=== PATIENT | female | born 1960 | race Caucasian/White ===

== ENCOUNTER 2018-11-28 11:34 | Outpatient (REF) | payer BC, SELFPAY ==
[2018-11-28 21:51] LABS: Abs Immature Grans 0.02 k/cumm (0.0-0.09); Absolute Basophil Count 0.06 k/cumm (0.0-0.2); Absolute Eosinophil Count 0.16 k/cumm (0.0-0.7); Absolute Lymphocyte Count 2.42 k/cumm (1.2-3.4); Absolute Monocyte Count 1.17 k/cumm (0.11-0.7); Absolute Neutrophil Count 5.95 k/cumm (1.2-6.7); Basophils % 0.6; Eosinophils % 1.6; HCT 42.2 % (36.0-46.0); HGB 14.1 g/dL (12.0-15.5); Immature Grans % 0.2; Lymphocytes % 24.7; Mean Corp. HGB Concentration 33.4 g/dL (32.0-36.0); Mean Corpuscular Hemoglobin 31.8 pg (27.0-33.0); Mean Corpuscular Volume 95.3 fL (80-95); Neutrophils % 60.9; RBC 4.43 m/cumm (4.00-5.20); RBC Distribution Width 13.7 % (11.7-14.6); White Blood Cell Count 9.78 k/cumm (4.4-10.8)
[2018-11-28 22:01] LABS: ALT 26 U/L (12-78); AST 18 U/L (15-37); Albumin 3.3 g/dL (3.4-5.0); Alkaline Phosphatase 125 U/L (46-116); Anion Gap 13.5 mmol/L (3-11); BUN 14 mg/dL (7-18); Bilirubin, Total 0.5 mg/dL (0.2-1.0); CO2 26.5 mmol/L (21.0-32.0); CREATININE 0.74 mg/dL (0.55-1.02); Calcium 9.1 mg/dL (8.5-10.1); Chloride 103 mmol/L (98-107); Glucose 95 mg/dL (70-100); Lipase 101 U/L (73-393); Potassium 3.2 mmol/L (3.5-5.1); Sodium 143 mmol/L (136-145); Total Protein 6.3 g/dL (6.4-8.2)
[2018-11-28 22:58] LABS: Platelet Count 129 x1000/uL (130-400)
[2018-11-28 22:59] LABS: Diff Comment PLT Morph Reviewed; RBC Morphology Normal
== END 2018-11-28 11:54 ==
LOC: NCHCN 11:34
PROVIDERS: PCP Family Medicine; Visit Provider Family Medicine
DX: R10.32 Left lower quadrant pain (principal); R19.4 Change in bowel habit
CPT/HCPCS: 80053; 83690; 85025

== ENCOUNTER 2019-01-21 13:32 | Emergency (ER) | payer BC, SELFPAY ==
[2019-01-21] VITALS (28 sets, daily range): BP systolic 106–143; BP diastolic 46–70; PULSE 74–95; RESP 10–26; TEMP 36.7; O2SAT 91–99
--- NOTE | 2019-01-21 14:00 | ED.GENADUL_ITS ---
Discharge Plan Disposition Patient Disposition: HOME Condition: Improving Discharge Details Chief Complaint: GenMedical Clinical Impression: Abdominal pain Primary Care Provider: LUIZ ZAVALA ED Provider: Filipe Joaquin Home Meds and New Rx's Prescriptions: Continued losartan 50 mg Tablet 50 mg PO DAILY RF: 0 atorvastatin 80 mg Tablet 80 mg PO DAILY RF: 0 ondansetron HCl 8 mg Tablet 8 mg PO TID PRNRF: 0 simethicone [Gas-X Extra Strength] 125 mg Capsule 1 tab PO PRN PRNRF: 0 prochlorperazine maleate 10 mg Tablet 10 mg PO Q6H PRN PRNRF: 0 aspirin [Aspir-81] 81 mg Tablet,Delayed Release (Dr/Ec) 1 tab PO DAILY RF: 0 pantoprazole 40 mg Tablet,Delayed Release (Dr/Ec) 40 mg PO DAILY RF: 0 docusate sodium [Colace] 100 mg Capsule 1 tab PO DAILY RF: 0 metoprolol tartrate 25 mg Tablet 25 mg PO BID RF: 0 Multi For Her 18 mg iron-600 mcg-40 mcg Capsule 1 tab PO DAILY RF: 0 oxycodone [OxyContin] 10 mg Tablet,Oral Only,Ext.Rel.12 Hr 10 mg PO Q12H RF: 0 Discharge Instructions Instructions: Abdominal Pain (ED) Additional Instructions: Your potassium today was 3.4. Your magnesium was low at 1.0 and you were given supplemental magnesium. Continue all of your regular medications as previously prescribed. Follow-up with Dr. Goldman for recheck and ongoing treatment of your pancreatic cancer. Return to the emergency department for recurrent or worsening abdominal pain, development of a fever or any other acute concern Medical Decision Making 58-year-old female with pancreatic cancer with liver metastases, underwent first round of chemotherapy this past Sunday and over the weekend developed gradual worsening nausea and abdominal pain that was refractive to home medications. She arrives afebrile with normal vital signs. IV placed, labs obtained and patient given fluids and analgesic. Referred for CT imaging given her onset of pain and known carcinoma. Diagnostics reveal known pancreatic mass with no other acute findings on CT scan. Patient has a white blood cell count of 11, hematocrit 36, platelets 65. Chemistries with hypomagnesemia which was supplemented in the ED Improved with analgesic, as above her diagnostic studies do not find any new acute process. She is improved and without significant complaint. We will discharged home. She will follow-up with oncology Lab Data Lab results reviewed: Yes I reviewed the patient's lab results. Laboratory Results - last 24 hr 01/21/19 01/21/19 13:10 14:10 WBC 11.04 H RBC 3.88 L Hgb 12.2 Hct 36.8 MCV 94.8 MCH 31.4 MCHC 33.2 RDW 13.3 Plt Count 65 L D MPV Immature Gran % 0.2 Neutrophils % 88.8 Lymphocytes % 8.6 Monocytes % 0.7 Eosinophils % 1.4 Basophils % 0.3 Absolute Neutrophils 9.80 H Absolute Lymphocytes 0.95 L Absolute Monocytes 0.08 L Absolute Eosinophils 0.15 Absolute Basophils 0.03 Differential Comment Plt morph reviewed RBC Morphology Normal Sodium 142 Potassium 3.4 L Chloride 101 Carbon Dioxide 28.7 Anion Gap 12.3 H BUN 12 Creatinine 0.88 Estimated GFR/1.73 m2 >= 60.00 Glucose 132 H Calcium 8.0 L Magnesium 1.1 L Total Bilirubin 1.0 AST 52 H ALT 44 Alkaline Phosphatase 162 H Troponin I < 0.02 Total Protein 6.4 Albumin 2.4 L Lipase 37 L ECG Data Attestation: I personally reviewed and interpreted this ECG (s) as follows: Interpretation: Is normal sinus rhythm, rate of 82, the QRS is narrow, no ST segment elevation HPI General Mode of arrival: ambulatory . Date/Time Provider Initiated Documentation: 01/21/19 13:43 . Limitations to Documentation: no limitations . Information obtained by: patient . History of Present Illness 58 year old F presents to the emergency department with the chief complaint of Nausea and abdominal pain after chemo, described as moderate, Quality is described as dull, and is localized to the abdomen. Patient distal. Patient started experiencing this hour(s) and it has been constant. No relieving factors improve symptom(s), No exacerbating factors reported . Patient notes loss of appetite and nausea/vomiting. Patient did receive the following treatments prior to arrival, none Related Data Home Medications Medication Instructions Recorded Confirmed Multi For Her 1 tab PO DAILY 01/21/19 01/21/19 aspirin [Aspir-81] 1 tab PO DAILY 01/21/19 01/21/19 atorvastatin 80 mg PO DAILY 01/21/19 01/21/19 docusate sodium [Colace] 1 tab PO DAILY 01/21/19 01/21/19 losartan 50 mg PO DAILY 01/21/19 01/21/19 metoprolol tartrate 25 mg PO BID 01/21/19 01/21/19 ondansetron HCl 8 mg PO TID PRN 01/21/19 01/21/19 oxycodone [OxyContin] 10 mg PO Q12H 01/21/19 01/21/19 pantoprazole 40 mg PO DAILY 01/21/19 01/21/19 prochlorperazine maleate 10 mg PO Q6H PRN PRN 01/21/19 01/21/19 simethicone [Gas-X Extra Strength] 1 tab PO PRN PRN 01/21/19 01/21/19 Allergies Allergy/AdvReac Type Severity Reaction Status Date / Time morphine AdvReac Unverified 01/21/19 13:54 bees Allergy Intermediate Psychosis Uncoded 01/21/19 13:54 General Stated Complaint: GenMedical RENATA: 2 Review of Systems Review of Systems 8 systems reviewed and otherwise - PFSH Social History Smoking and Tabacco status: Current every day Exam Narrative Exam Narrative: GEN: awake, alert, oriented 3. Pleasant, well groomed, interactive. HEAD: Normocephalic, atraumatic ENT: Mucous membranes dry, oropharynx unremarkable, External ear exam unremarkable EYES: PERRL, EOMI NECK: Full ROM, no CAMMY, no menigismus CHEST/RESP: Nontender, clear to auscultation bilateral, no wheeze/rhonchi/rales CARDIOVASCULAR: RRR, no murmur, rub nataliya. 2+ Rad pulse bilateral ABDOMEN: Soft, minimally tender in epigastrium, no mass. +Bowel sounds EXT: Full ROM, no edema, no rash Neuro: Grossly normal neurologic exam, conversant, interactive. Psych: Speech fluent, thoughts congruent, affect normal Course Vital Signs Temperature 36.7 C 01/21/19 13:42 Pulse 85 01/21/19 13:42 Respiratory Rate 16 01/21/19 13:42 Blood Pressure 129/63 01/21/19 13:42 Pulse Oximetry 98 01/21/19 13:42 Temperature 36.7 C 01/21/19 13:42 Temperature Source Skin 01/21/19 13:42 Pulse 85 01/21/19 13:42 Respiratory Rate 16 01/21/19 13:52 Respiratory Effort Non-Labored 01/21/19 13:52 Respiratory Depth Normal 01/21/19 13:52 Respiratory Pattern Normal 01/21/19 13:52 Blood Pressure 129/63 01/21/19 13:42 Blood Pressure Position Sitting 01/21/19 13:42 Pulse Oximetry 98 01/21/19 13:42 Oxygen Delivery Method Room Air 01/21/19 13:42 Oxygen Flow Rate 0 01/21/19 13:42 Pain Level 6 01/21/19 13:42
[2019-01-21 14:22] LABS: Abs Immature Grans 0.02 k/cumm (0.0-0.09); Absolute Basophil Count 0.03 k/cumm (0.0-0.2); Absolute Eosinophil Count 0.15 k/cumm (0.0-0.7); Absolute Lymphocyte Count 0.95 k/cumm (1.2-3.4); Absolute Monocyte Count 0.08 k/cumm (0.11-0.7); Basophils % 0.3; Eosinophils % 1.4; HCT 36.8 % (36.0-46.0); HGB 12.2 g/dL (12.0-15.5); Immature Grans % 0.2; Lymphocytes % 8.6; Mean Corp. HGB Concentration 33.2 g/dL (32.0-36.0); Mean Corpuscular Hemoglobin 31.4 pg (27.0-33.0); Mean Corpuscular Volume 94.8 fL (80-95); Monocytes % 0.7; Neutrophils % 88.8; RBC 3.88 m/cumm (4.00-5.20); RBC Distribution Width 13.3 % (11.7-14.6); White Blood Cell Count 11.04 k/cumm (4.4-10.8)
[2019-01-21] MEDS: Normal Saline 1,000 ML 1000 ML IV (14:30)
[2019-01-21] MEDS: HYDROmorphone 2 MG/ML VIAL 1 MG IVP (14:30)
[2019-01-21] MEDS: Ondansetron 4 MG/2 ML VIAL IVP (14:35)
[2019-01-21 14:42] LABS: Diff Comment PLT Morph Reviewed; Platelet Count 65 x1000/uL (130-400); RBC Morphology Normal
[2019-01-21 14:44] LABS: ALT 44 U/L (12-78); AST 52 U/L (15-37); Albumin 2.4 g/dL (3.4-5.0); Alkaline Phosphatase 162 U/L (46-116); Anion Gap 12.3 mmol/L (3-11); BUN 12 mg/dL (7-18); CO2 28.7 mmol/L (21.0-32.0); CREATININE 0.88 mg/dL (0.55-1.02); Chloride 101 mmol/L (98-107); Glucose 132 mg/dL (70-100); Lipase 37 U/L (73-393); Magnesium 1.1 mg/dL (1.8-2.4); Potassium 3.4 mmol/L (3.5-5.1); Sodium 142 mmol/L (136-145); Total Protein 6.4 g/dL (6.4-8.2)
[2019-01-21 14:47] LABS: Troponin I < 0.02 ng/mL (0.00-0.06)
--- NOTE | 2019-01-21 15:42 | DI.CT_ITS ---
SYMPTOMS/DIAGNOSIS: EPIGASTRIC AND RIGHT LOWER QUADRANT PAIN, PANCREATIC CA, LIVER LESIONS, HEMATURIA CT OF THE ABDOMEN AND PELVIS: There are no prior comparison exams. The patient carries a diagnosis of pancreatic cancer. There is an ill-defined invasive mass centered in the tail of the pancreas. The mass roughly measures 2.3 x 3 cm. The mass is invasive and invades the adjacent left adrenal gland, as well as obstructs the splenic artery and splenic vein. There is also obstruction of the left renal artery. The left kidney is atrophic. The right kidney shows compensatory hypertrophy. There is a simple-appearing left renal cyst. There is no left hydronephrosis. Numerous liver metastases are seen. No gallstones, gallbladder wall thickening or biliary dilatation is seen. The spleen is normal in size. The right adrenal is unremarkable. There is no bowel dilatation. A few scattered diverticula are seen in the sigmoid region. There is stool in the rectum. The appendix projects in the right upper quadrant adjacent to the anterior aspect of the kidney. There is no surrounding inflammation. The bladder and uterus are unremarkable. There is a mild compression fracture of the inferior endplate of T12. No definite bony metastases are seen. There are atherosclerotic changes of the abdominal aorta and mild dilatation to 2.8 cm. There is some mural thrombus. There is some narrowing of both proximal iliac arteries. IMPRESSION: Infiltrative pancreatic mass. No acute abnormalities identified.
[2019-01-21] MEDS: Normal Saline Flush 10 ML SYR IVP (15:43)
[2019-01-21] MEDS: Omnipaque 350 MG/ML 100 ML BTL IJ (15:43)
[2019-01-21] MEDS: MAGNESIUM SULFATE 2 GM/50 ML BAG IVPB (15:54)
[2019-01-21 16:05] LABS: Bilirubin Negative (Negative); Blood Negative (Negative); Clarity Clear; Glucose Negative (Negative); Ketones Negative (Negative); Leukocyte Esterase Negative (Negative); Nitrite Negative (Negative); Urobilinogen 0.2 EU/dL (Up TO 0.2)
[2019-01-21 16:14] LABS: Epithelial Cells Moderate HPF (Negative); Other Cells Few Transitional (Negative)
[2019-01-21 16:15] LABS: Bacteria Negative HPF (Negative); C & S Indicated? No/Sq. Contamination; Casts Negative LPF (Negative); Crystals Negative HPF (Negative); Mucus Negative (Negative)
[2019-01-21] MEDS: Heparin 500 UNITS/5 ML SYRINGE (17:30)
== END 2019-01-21 17:35 | disposition home or self-care (01) ==
PROVIDERS: Emergency Provider Emergency Medicine; PCP Family Medicine
DX: R10.9 Unspecified abdominal pain (principal); C25.9 Malignant neoplasm of pancreas, unspecified; C78.7 Secondary malignant neoplasm of liver and intrahepatic bile duct
CPT/HCPCS: 36415; 80053; 83690; 96361; 96365; 96366; 96375; 99285; 74177; 81003; 81015; 83735; 84484; 85025; 99284; J2405; J3490

== ENCOUNTER 2019-01-29 20:52 | Emergency (ER) | payer BC, SELFPAY ==
[2019-01-29 21:09] VITALS: BP 155/65; PULSE 99; RESP 16; TEMP 36.1; O2SAT 99
--- NOTE | 2019-01-29 21:27 | ED.GENADUL_ITS ---
Discharge Plan Disposition Patient Disposition: HOME Condition: Stable Discharge Details Chief Complaint: Abd Prob Clinical Impression: Abdominal pain, Constipation, Hypokalemia, Hypomagnesemia Reason For Visit: constipation / abd pain Primary Care Provider: LUIZ ZAVALA ED Provider: Klever Mendoza Home Meds and New Rx's Prescriptions: Continued losartan 50 mg Tablet 50 mg PO DAILY RF: 0 atorvastatin 80 mg Tablet 80 mg PO DAILY RF: 0 ondansetron HCl 8 mg Tablet 8 mg PO TID PRNRF: 0 simethicone [Gas-X Extra Strength] 125 mg Capsule 1 tab PO PRN PRNRF: 0 prochlorperazine maleate 10 mg Tablet 10 mg PO Q6H PRN PRNRF: 0 aspirin [Aspir-81] 81 mg Tablet,Delayed Release (Dr/Ec) 1 tab PO DAILY RF: 0 pantoprazole 40 mg Tablet,Delayed Release (Dr/Ec) 40 mg PO DAILY RF: 0 docusate sodium [Colace] 100 mg Capsule 1 tab PO DAILY RF: 0 metoprolol tartrate 25 mg Tablet 25 mg PO BID RF: 0 Multi For Her 18 mg iron-600 mcg-40 mcg Capsule 1 tab PO DAILY RF: 0 oxycodone [OxyContin] 10 mg Tablet,Oral Only,Ext.Rel.12 Hr 10 mg PO Q12H RF: 0 docusate sodium [Colace] 100 mg Capsule 1 tab PO RF: 0 polyethylene glycol 3350 [Miralax] 17 gram/dose Powder 1 PO PRN PRNRF: 0 heparin, porcine (PF) 100 unit/mL Syringe 80 units BID RF: 0 heparin (porcine) in NaCl (PF) 1,000 unit/500 mL Parenteral Solution RF: 0 Discharge Instructions Instructions: Hypokalemia (ED), Hypomagnesemia (ED) Additional Instructions: Your symptoms are due to your pancreatic cancer Follow up with your oncologist If you feel you are becoming more ill, dehydrated, or develop new symptoms such as chest pain or shortness of breath return to the emergency department Medical Decision Making 58 yo female with hx of pancreatic cancer who had first and only chemotherapy on 01/17, comes in with increasing abodminal pain and constipation. She was seen in the ED on 01/21 with negative labs and imaging for constipation and d/c'd home. She states she wasn't having as much pain and the pain as slowly been worsening and is generalized throughout the abdomen and still has had trouble having a BM and states only had a small one earlier today. On exam no distention of the abodmen, has tenderness throughout on exam without guarding or rebound. On rectal has normal oustide appearance of rectum, no bleeding, no hemorrhoids, normal rectal tone, no impacted stool on my exam, guiac neg stool. given her worsening pain and constipation will obtain imaging and labs to eval for sbo, pancreatitis and see if an enema helps her symptoms pt's labs show mild increase in lfts which she has had in the past and likely from infiltrative process of her cancer. Mild hypokalemia and hypomag. Awaiting imaging results Pt's ct shows no new findings. She is frustrated on why she doesn't have a cause for her symptoms and I explained that these symptoms are likely due to her mass. She states she ideally would have this fixed quickly and I advised that this is likely something that will last months at the minimum and will not be fixed acutely. I offered admission for pain control but the patient declined this at this time. She will f/u with her oncologist and return precautions given Differential Diagnosis constipation, dehydration, sbo Imaging Data Radiologic Study: Attestation: I personally reviewed and interpreted this imaging study as follows: Imaging: CT Scan Radiologist's impression: IMPRESSION: Infiltrative pancreatic mass, periaortic lymphadenopathy and liver lesions all unchanged in the shortterm. No new findings. Lab Data Lab results reviewed: Yes I reviewed the patient's lab results. HPI General Mode of arrival: wheelchair . Date/Time Provider Initiated Documentation: 01/29/19 20:53 . Limitations to Documentation: no limitations . Information obtained by: patient . History of Present Illness 58 year old F presents to the emergency department with the chief complaint of constipation and abdominal pain, described as severe, and is localized to the abdomen. Patient reports no radiation. Patient started experiencing this week(s) (1) and it has been constant. No relieving factors improve symptom(s), No exacerbating factors reported . Patient did receive the following treatments prior to arrival, none Related Data Home Medications Medication Instructions Recorded Confirmed Multi For Her 1 tab PO DAILY 01/21/19 01/29/19 aspirin [Aspir-81] 1 tab PO DAILY 01/21/19 01/29/19 atorvastatin 80 mg PO DAILY 01/21/19 01/29/19 docusate sodium [Colace] 1 tab PO DAILY 01/21/19 01/29/19 losartan 50 mg PO DAILY 01/21/19 01/29/19 metoprolol tartrate 25 mg PO BID 01/21/19 01/29/19 ondansetron HCl 8 mg PO TID PRN 01/21/19 01/29/19 oxycodone [OxyContin] 10 mg PO Q12H 01/21/19 01/29/19 pantoprazole 40 mg PO DAILY 01/21/19 01/21/19 prochlorperazine maleate 10 mg PO Q6H PRN PRN 01/21/19 01/21/19 simethicone [Gas-X Extra Strength] 1 tab PO PRN PRN 01/21/19 01/21/19 docusate sodium [Colace] 1 tab PO 01/29/19 heparin (porcine) in NaCl (PF) 01/29/19 heparin, porcine (PF) 80 units BID 01/29/19 01/29/19 polyethylene glycol 3350 [Miralax] 1 PO PRN PRN 01/29/19 Allergies Allergy/AdvReac Type Severity Reaction Status Date / Time morphine AdvReac Unverified 01/29/19 21:18 bees Allergy Intermediate Psychosis Uncoded 01/29/19 21:18 General Stated Complaint: Abd Prob RENATA: 3 Review of Systems Review of Systems All systems reviewed & are unremarkable except as noted in HPI and below Constitutional Denies chills and Denies fever(s) ENT Denies change in voice Cardiovascular Denies chest pain and Denies dyspnea Respiratory Denies cough and Denies dyspnea Genitourinary Denies dysuria Musculoskeletal Denies joint swelling Integumentary/Breasts Denies rash PFSH Social History Smoking and Tabacco status: Current every day Exam Const General: no acute distress Orientation: alert HENGA Head: normal to inspection Ears: external ears normal General nose exam: external nose normal Mouth: moist mucous membranes Eyes General: appearance normal, both eyes and all related structures Neck Neck: normal visual inspection Resp Effort & Inspection: normal respiratory effort and able to speak in complete sentences Cardio Rate: regular rate GI Inspection: no abdominal wall ecchymosis Skin General skin exam: no rashes or lesions noted Neuro General: alert and oriented x3 Extrem General: normal to inspection Psych Mental Status: mental status grossly normal Course Vital Signs Temperature 36.1 C L 01/29/19 21:09 Pulse 99 H 01/29/19 21:09 Respiratory Rate 16 01/29/19 21:09 Blood Pressure 155/65 H 01/29/19 21:09 Pulse Oximetry 99 01/29/19 21:09 Temperature 36.1 C L 01/29/19 21:09 Temperature Source Temporal Artery Scan 01/29/19 21:09 Pulse 99 H 01/29/19 21:09 Respiratory Rate 16 01/29/19 21:09 Blood Pressure 155/65 H 01/29/19 21:09 Blood Pressure Position Supine 01/29/19 21:09 Pulse Oximetry 99 01/29/19 21:09 Oxygen Delivery Method Room Air 01/29/19 21:09 Oxygen Flow Rate 0 01/29/19 21:09
[2019-01-29] MEDS: HYDROmorphone 2 MG/ML VIAL 1 MG IVP (21:48)
[2019-01-29] MEDS: Normal Saline 1,000 ML 1000 ML IV (21:49)
[2019-01-29] MEDS: Ondansetron 4 MG/2 ML VIAL IVP (21:51)
[2019-01-29 22:08] LABS: Abs Immature Grans 0.02 k/cumm (0.0-0.09); Absolute Basophil Count 0.02 k/cumm (0.0-0.2); Absolute Eosinophil Count 0.02 k/cumm (0.0-0.7); Absolute Lymphocyte Count 1.05 k/cumm (1.2-3.4); Absolute Monocyte Count 1.04 k/cumm (0.11-0.7); Absolute Neutrophil Count 3.01 k/cumm (1.2-6.7); Basophils % 0.4; Eosinophils % 0.4; HCT 35.8 % (36.0-46.0); HGB 12.1 g/dL (12.0-15.5); Immature Grans % 0.4; Lymphocytes % 20.3; Mean Corp. HGB Concentration 33.8 g/dL (32.0-36.0); Mean Corpuscular Hemoglobin 31.6 pg (27.0-33.0); Mean Corpuscular Volume 93.5 fL (80-95); Mean Platelet Volume 13.4 fL (8.0-11.0); Monocytes % 20.2; Neutrophils % 58.3; Platelet Count 100 x1000/uL (130-400); RBC 3.83 m/cumm (4.00-5.20); RBC Distribution Width 13.1 % (11.7-14.6); White Blood Cell Count 5.16 k/cumm (4.4-10.8)
[2019-01-29 22:09] LABS: Magnesium 1.3 mg/dL (1.8-2.4)
[2019-01-29 22:13] LABS: ALT 336 U/L (12-78); AST 436 U/L (15-37); Albumin 2.6 g/dL (3.4-5.0); Alkaline Phosphatase 219 U/L (46-116); Anion Gap 13.6 mmol/L (3-11); BUN 9 mg/dL (7-18); Bilirubin, Direct 0.31 mg/dL (0.00-0.20); Bilirubin, Total 0.9 mg/dL (0.2-1.0); CO2 25.4 mmol/L (21.0-32.0); CREATININE 0.84 mg/dL (0.55-1.02); Chloride 101 mmol/L (98-107); Glucose 103 mg/dL (70-100); INR 1.1 (0.9-1.1); Lipase 57 U/L (73-393); PTT Activated 28.5 sec (21.0-31.4); Potassium 3.3 mmol/L (3.5-5.1); Prothrombin Time 10.8 sec (9.3-11.0); Sodium 140 mmol/L (136-145); Total Protein 6.5 g/dL (6.4-8.2)
[2019-01-29] MEDS: Omnipaque 350 MG/ML 100 ML BTL IJ (22:16)
[2019-01-29 22:20] LABS: Calcium 8.9 mg/dL (8.5-10.1)
--- NOTE | 2019-01-29 22:20 | DI.CT_ITS ---
SYMPTOM/DIAGNOSIS: ABDOMINAL PAIN CT ABDOMEN AND PELVIS: CT scan of the abdomen and pelvis was performed following the uneventful administration of intravenous contrast material. Comparison examination is 01/21/2019. FINDINGS: No acute abnormalities are seen in the lung bases. There are again seen multiple hypodense lesions in the liver which appear stable. The portal and superior mesenteric veins are patent. The gallbladder is negative. There is no biliary ductal dilatation. There is again seen an infiltrative mass in the body of the pancreas. It again is showing obstruction of the splenic vessels and infiltration in to the left adrenal gland. It abuts the anterior left aspect of the abdominal aorta which is unchanged. There also appears to be an obstruction of the left renal vein. These findings are unchanged compared to the examination from 8 days prior The spleen appears stable as does the right adrenal gland. The kidneys are stable in appearance. There is again seen decreased size of the left kidney and compensatory hypertrophy of the right kidney. The urinary bladder is intact. Reproductive organs are unremarkable. The bowel shows no evidence of obstruction or inflammation. There is extensive atherosclerosis of the abdominal aorta with ectasia up to 2.8 cm. The osseous structures appear stable. No new abdominal or pelvic adenopathy is seen. No abdominal ascites is present. No pneumoperitoneum is identified. IMPRESSION: Stable infiltrative pancreatic mass consistent with patient's known pancreatic carcinoma. 2. No acute abnormality
--- NOTE | 2019-01-29 22:38 | DI.VRAD_ITS ---
EXAM: CT Abdomen and Pelvis With Contrast EXAM DATE/TIME: 01/29/2019 9:24 PM CLINICAL HISTORY: 58 years old, female; Pain; Abdominal pain; Generalized; Patient HX: Recently diagnosed with pancreatic cancer, recently received first chemo treatment TECHNIQUE: Axial computed tomography images of the abdomen and pelvis with intravenous contrast. All CT scans at this facility use at least one of these dose optimization techniques: automated exposure control; mA and/or kV adjustment per patient size (includes targeted exams where dose is matched to clinical indication); or iterative reconstruction. Coronal and sagittal reformatted images were created and reviewed. CONTRAST: Contrast Material: 100 ml of [id number]; Contrast Route: iv COMPARISON: CT ABDOMEN PELVIS W 01/21/2019 3:35 PM FINDINGS: Lower thorax: Unremarkable. ABDOMEN: Liver: Numerous small liver hypodensities are unchanged in the short-term. Gallbladder and bile ducts: No acute or concerning findings. Pancreas: Poorly defined mass in the body of the pancreas is unchanged in the short-term. Spleen: No suspicious lesions. Adrenals: Unremarkalbe. No suspicious mass. Kidneys and ureters: Unremarkable. No hydro. No suspicious lesions. Stomach and bowel: Unremarkable. No obstruction or inflammatory changes. Appendix: No evidence of appendicitis. PELVIS: Bladder: Unremarkable as visualized. Reproductive: Unremarkable as visualized. ABDOMEN and PELVIS: Intraperitoneal space: No free air. No significant fluid collection. Bones/joints: No acute fracture. No dislocation. Soft tissues: Unremarkable. Vasculature: Abdominal aortic ectasia with a maximal AP diameter to the abdominal aorta being 2.8 cm. Lymph nodes: 25 mm abnormal lymph node adjacent to the pancreatic lesion in a para-aortic location also unchanged in the short-term. IMPRESSION: Infiltrative pancreatic mass, periaortic lymphadenopathy and liver lesions all unchanged in the short-term. No new findings. Dictated and Authenticated by: Nicoals Biswas MD. Ordering:JOSUE Ernst MD
[2019-01-29 23:03] LABS: Bilirubin Small (Negative); Blood Negative (Negative); Clarity Clear; Glucose Negative (Negative); Ketones 15 mg/dL (Negative); Leukocyte Esterase Negative (Negative); Nitrite Negative (Negative); Urobilinogen 0.2 EU/dL (Up TO 0.2)
[2019-01-29 23:13] LABS: Bacteria Rare HPF (Negative); C & S Indicated? No; Casts Negative LPF (Negative); Crystals Negative HPF (Negative); Epithelial Cells Rare HPF (Negative); Mucus Trace (Negative); Other Cells Negative (Negative); RBC Negative (0-2); WBC Negative HPF (0-5)
[2019-01-29 23:18] VITALS: BP 172/82; PULSE 98; RESP 16; TEMP 36.3; O2SAT 97
[2019-01-29] MEDS: Heparin 500 UNITS/5 ML SYRINGE (23:53)
== END 2019-01-29 23:49 | disposition home or self-care (01) ==
PROVIDERS: Emergency Provider Emergency Medicine; PCP Family Medicine
DX: R10.9 Unspecified abdominal pain (principal); K59.00 Constipation, unspecified; E87.6 Hypokalemia; E83.42 Hypomagnesemia; C25.9 Malignant neoplasm of pancreas, unspecified; Z92.21 Personal history of antineoplastic chemotherapy
CPT/HCPCS: 80053; 80076; 83690; 96361; 96374; 96375; 99285; 74177; 81003; 81015; 83735; 85025; 85610; 85730; 99284; J2405; J3490

== ENCOUNTER 2019-02-14 01:49 | Outpatient (RCR) | payer BC, SELFPAY ==
[2019-01-17] MEDS: Normal Saline Flush 10 ML SYR IVP (09:01)
[2019-01-17 09:09] LABS: Abs Immature Grans 0.02 k/cumm (0.0-0.09); Absolute Eosinophil Count 0.08 k/cumm (0.0-0.7); Absolute Lymphocyte Count 1.68 k/cumm (1.2-3.4); Absolute Monocyte Count 1.38 k/cumm (0.11-0.7); Basophils % 0.3; Eosinophils % 0.7; HCT 40.4 % (36.0-46.0); HGB 13.7 g/dL (12.0-15.5); Immature Grans % 0.2; Lymphocytes % 14.5; Mean Corp. HGB Concentration 33.9 g/dL (32.0-36.0); Mean Corpuscular Hemoglobin 31.6 pg (27.0-33.0); Mean Corpuscular Volume 93.1 fL (80-95); Monocytes % 11.9; Neutrophils % 72.4; RBC 4.34 m/cumm (4.00-5.20); RBC Distribution Width 13.1 % (11.7-14.6)
[2019-01-17 09:14] LABS: Absolute Basophil Count 0.03 k/cumm (0.0-0.2)
[2019-01-17 09:22] LABS: ALT 25 U/L (12-78); AST 30 U/L (15-37); Albumin 2.7 g/dL (3.4-5.0); Alkaline Phosphatase 151 U/L (46-116); Anion Gap 10.4 mmol/L (3-11); BUN 10 mg/dL (7-18); Bilirubin, Total 0.6 mg/dL (0.2-1.0); CO2 32.6 mmol/L (21.0-32.0); CREATININE 0.89 mg/dL (0.55-1.02); Calcium 8.7 mg/dL (8.5-10.1); Chloride 100 mmol/L (98-107); Glucose 161 mg/dL (70-100); Sodium 143 mmol/L (136-145); Total Protein 6.8 g/dL (6.4-8.2)
[2019-01-17 09:24] LABS: Diff Comment PLT Morph Reviewed; Platelet Count 153 x1000/uL (130-400); RBC Morphology Normal
[2019-01-17 09:28] LABS: Potassium 2.4 mmol/L (3.5-5.1)
[2019-01-20 12:12] LABS: CEA 69.7 ng/ml
[2019-01-20 12:51] LABS: CA 19-9 15 U/mL (<35)
[2019-01-24] MEDS: Normal Saline Flush 10 ML SYR IVP (07:35)
[2019-01-24 07:42] LABS: Abs Immature Grans 0.01 k/cumm (0.0-0.09); Absolute Basophil Count 0.03 k/cumm (0.0-0.2); Absolute Eosinophil Count 0.07 k/cumm (0.0-0.7); Absolute Lymphocyte Count 1.08 k/cumm (1.2-3.4); Absolute Monocyte Count 0.46 k/cumm (0.11-0.7); Absolute Neutrophil Count 4.16 k/cumm (1.2-6.7); Basophils % 0.5; Eosinophils % 1.2; HCT 35.9 % (36.0-46.0); HGB 11.8 g/dL (12.0-15.5); Immature Grans % 0.2; Lymphocytes % 18.6; Mean Corp. HGB Concentration 32.9 g/dL (32.0-36.0); Mean Corpuscular Hemoglobin 31.3 pg (27.0-33.0); Mean Corpuscular Volume 95.2 fL (80-95); Monocytes % 7.9; Neutrophils % 71.6; RBC 3.77 m/cumm (4.00-5.20); RBC Distribution Width 13.5 % (11.7-14.6); White Blood Cell Count 5.81 k/cumm (4.4-10.8)
[2019-01-24 07:53] LABS: ALT 57 U/L (12-78); AST 62 U/L (15-37); Albumin 2.3 g/dL (3.4-5.0); Alkaline Phosphatase 174 U/L (46-116); Anion Gap 12.5 mmol/L (3-11); BUN 9 mg/dL (7-18); Bilirubin, Total 0.6 mg/dL (0.2-1.0); CO2 26.5 mmol/L (21.0-32.0); CREATININE 1.12 mg/dL (0.55-1.02); Calcium 8.3 mg/dL (8.5-10.1); Chloride 105 mmol/L (98-107); Estimated GFR 49.62 (mL/min/1.73m2); Glucose 130 mg/dL (70-100); Potassium 3.5 mmol/L (3.5-5.1); Sodium 144 mmol/L (136-145); Total Protein 6.4 g/dL (6.4-8.2)
[2019-01-24 07:56] LABS: Platelet Count 39 x1000/uL (130-400)
[2019-01-24 07:57] LABS: Diff Comment RBC Morph Reviewed; Poikilocytes 1+
[2019-01-27 10:11] LABS: CA 19-9 18 U/mL (<35)
[2019-01-27 10:31] LABS: CEA 72.7 ng/ml
[2019-01-31] MEDS: Normal Saline Flush 10 ML SYR IVP (08:25)
[2019-01-31 08:37] LABS: Abs Immature Grans 0.01 k/cumm (0.0-0.09); Absolute Basophil Count 0.02 k/cumm (0.0-0.2); Absolute Eosinophil Count 0.09 k/cumm (0.0-0.7); Absolute Lymphocyte Count 1.53 k/cumm (1.2-3.4); Absolute Monocyte Count 1.14 k/cumm (0.11-0.7); Absolute Neutrophil Count 2.72 k/cumm (1.2-6.7); Basophils % 0.4; Eosinophils % 1.6; HCT 37.7 % (36.0-46.0); HGB 12.7 g/dL (12.0-15.5); Immature Grans % 0.2; Lymphocytes % 27.8; Mean Corp. HGB Concentration 33.7 g/dL (32.0-36.0); Mean Corpuscular Hemoglobin 32.1 pg (27.0-33.0); Mean Corpuscular Volume 95.2 fL (80-95); Mean Platelet Volume 13.2 fL (8.0-11.0); Monocytes % 20.7; Neutrophils % 49.3; Platelet Count 160 x1000/uL (130-400); RBC 3.96 m/cumm (4.00-5.20); RBC Distribution Width 13.5 % (11.7-14.6); White Blood Cell Count 5.51 k/cumm (4.4-10.8)
[2019-01-31 08:49] LABS: ALT 316 U/L (12-78); AST 360 U/L (15-37); Albumin 2.7 g/dL (3.4-5.0); Alkaline Phosphatase 222 U/L (46-116); Anion Gap 12.1 mmol/L (3-11); BUN 7 mg/dL (7-18); Bilirubin, Total 0.8 mg/dL (0.2-1.0); CO2 26.9 mmol/L (21.0-32.0); CREATININE 1.11 mg/dL (0.55-1.02); Calcium 8.6 mg/dL (8.5-10.1); Chloride 103 mmol/L (98-107); Estimated GFR 50.14 (mL/min/1.73m2); Glucose 151 mg/dL (70-100); Sodium 142 mmol/L (136-145); Total Protein 6.6 g/dL (6.4-8.2)
[2019-01-31 08:54] LABS: Potassium 2.8 mmol/L (3.5-5.1)
[2019-02-03 11:05] LABS: CA 19-9 25 U/mL (<35)
[2019-02-03 11:25] LABS: CEA 76.6 ng/ml
[2019-02-14] MEDS: Normal Saline Flush 10 ML SYR IVP (07:30)
[2019-02-14 07:57] LABS: Abs Immature Grans 0.02 k/cumm (0.0-0.09); Absolute Basophil Count 0.02 k/cumm (0.0-0.2); Absolute Eosinophil Count 0.08 k/cumm (0.0-0.7); Absolute Lymphocyte Count 1.76 k/cumm (1.2-3.4); Absolute Monocyte Count 1.56 k/cumm (0.11-0.7); Absolute Neutrophil Count 2.64 k/cumm (1.2-6.7); Basophils % 0.3; Eosinophils % 1.3; HCT 36.7 % (36.0-46.0); HGB 12.4 g/dL (12.0-15.5); Immature Grans % 0.3; Lymphocytes % 28.9; Mean Corp. HGB Concentration 33.8 g/dL (32.0-36.0); Mean Corpuscular Volume 97.6 fL (80-95); Mean Platelet Volume 13.8 fL (8.0-11.0); Monocytes % 25.7; Neutrophils % 43.5; RBC 3.76 m/cumm (4.00-5.20); RBC Distribution Width 16.7 % (11.7-14.6); White Blood Cell Count 6.08 k/cumm (4.4-10.8)
[2019-02-14 08:09] LABS: Anisocytosis 1+; Platelet Count 83 x1000/uL (130-400)
[2019-02-14 08:10] LABS: Poikilocytes 1+; Polychromasia Present
[2019-02-14 08:19] LABS: ALT 160 U/L (12-78); AST 112 U/L (15-37); Albumin 2.6 g/dL (3.4-5.0); Alkaline Phosphatase 347 U/L (46-116); Anion Gap 13.3 mmol/L (3-11); BUN 11 mg/dL (7-18); Bilirubin, Total 0.6 mg/dL (0.2-1.0); CO2 23.7 mmol/L (21.0-32.0); CREATININE 1.09 mg/dL (0.55-1.02); Calcium 8.9 mg/dL (8.5-10.1); Chloride 104 mmol/L (98-107); Glucose 143 mg/dL (70-100); Potassium 3.6 mmol/L (3.5-5.1); Sodium 141 mmol/L (136-145); Total Protein 6.8 g/dL (6.4-8.2)
[2019-02-17 10:55] LABS: CA 19-9 25 U/mL (<35)
== END 2019-02-16 23:59 | disposition home or self-care (01) ==
LOC: INF 01:49
PROVIDERS: PCP Family Medicine; Visit Provider Internal Medicine Hematology & Oncology
DX: C25.9 Malignant neoplasm of pancreas, unspecified (principal); C78.7 Secondary malignant neoplasm of liver and intrahepatic bile duct; R97.0 Elevated carcinoembryonic antigen [CEA]; Z45.2 Encounter for adjustment and management of vascular access device
CPT/HCPCS: 36591; 80053; 82378; 85025; 86301

== ENCOUNTER 2019-03-07 00:53 | Outpatient (RCR) | payer BC, SELFPAY ==
[2019-02-21] MEDS: Normal Saline Flush 10 ML SYR IVP (09:50)
[2019-02-21 10:20] LABS: Abs Immature Grans 0.05 k/cumm (0.0-0.09); Absolute Basophil Count 0.06 k/cumm (0.0-0.2); Absolute Eosinophil Count 0.11 k/cumm (0.0-0.7); Absolute Lymphocyte Count 1.93 k/cumm (1.2-3.4); Absolute Monocyte Count 1.39 k/cumm (0.11-0.7); Absolute Neutrophil Count 5.76 k/cumm (1.2-6.7); Basophils % 0.6; Eosinophils % 1.2; HCT 40.3 % (36.0-46.0); HGB 13.2 g/dL (12.0-15.5); Immature Grans % 0.5; Lymphocytes % 20.8; Mean Corp. HGB Concentration 32.8 g/dL (32.0-36.0); Mean Corpuscular Volume 97.8 fL (80-95); Monocytes % 14.9; RBC 4.12 m/cumm (4.00-5.20); RBC Distribution Width 18.4 % (11.7-14.6)
[2019-02-21 10:30] LABS: ALT 69 U/L (12-78); AST 52 U/L (15-37); Albumin 2.9 g/dL (3.4-5.0); Alkaline Phosphatase 260 U/L (46-116); Anion Gap 10.2 mmol/L (3-11); BUN 10 mg/dL (7-18); Bilirubin, Total 0.5 mg/dL (0.2-1.0); CO2 25.8 mmol/L (21.0-32.0); CREATININE 1.06 mg/dL (0.55-1.02); Calcium 9.4 mg/dL (8.5-10.1); Chloride 104 mmol/L (98-107); Estimated GFR 52.88 (mL/min/1.73m2); Glucose 156 mg/dL (70-100); Sodium 140 mmol/L (136-145); Total Protein 6.9 g/dL (6.4-8.2)
[2019-02-21 10:42] LABS: Anisocytosis 2+; Diff Comment RBC Morph Reviewed; Poikilocytes 1+; Polychromasia Present
[2019-02-21 14:09] LABS: Platelet Count 190 x1000/uL (130-400)
[2019-02-24 10:06] LABS: CA 19-9 26 U/mL (<35)
[2019-02-24 11:30] LABS: CEA 48.7 ng/ml
[2019-02-28] MEDS: Normal Saline Flush 10 ML SYR IVP (09:00)
[2019-02-28 09:49] LABS: Abs Immature Grans 0.01 k/cumm (0.0-0.09); Absolute Basophil Count 0.06 k/cumm (0.0-0.2); Absolute Eosinophil Count 0.01 k/cumm (0.0-0.7); Absolute Monocyte Count 0.35 k/cumm (0.11-0.7); Absolute Neutrophil Count 3.77 k/cumm (1.2-6.7); Basophils % 1.2; Eosinophils % 0.2; HCT 35.9 % (36.0-46.0); HGB 11.9 g/dL (12.0-15.5); Immature Grans % 0.2; Lymphocytes % 17.6; Mean Corp. HGB Concentration 33.1 g/dL (32.0-36.0); Mean Corpuscular Hemoglobin 32.6 pg (27.0-33.0); Mean Corpuscular Volume 98.4 fL (80-95); Monocytes % 6.9; Neutrophils % 73.9; RBC 3.65 m/cumm (4.00-5.20); RBC Distribution Width 18.1 % (11.7-14.6)
[2019-02-28 10:00] LABS: ALT 101 U/L (12-78); AST 107 U/L (15-37); Albumin 2.8 g/dL (3.4-5.0); Alkaline Phosphatase 218 U/L (46-116); Anion Gap 13.1 mmol/L (3-11); BUN 19 mg/dL (7-18); Bilirubin, Total 0.6 mg/dL (0.2-1.0); CO2 23.9 mmol/L (21.0-32.0); CREATININE 1.45 mg/dL (0.55-1.02); Calcium 8.8 mg/dL (8.5-10.1); Chloride 101 mmol/L (98-107); Estimated GFR 36.84 (mL/min/1.73m2); Glucose 185 mg/dL (70-100); Sodium 138 mmol/L (136-145); Total Protein 6.9 g/dL (6.4-8.2)
[2019-02-28 10:09] LABS: Platelet Count 62 x1000/uL (130-400)
[2019-02-28 10:11] LABS: Diff Comment RBC Morph Reviewed
[2019-02-28 10:13] LABS: Anisocytosis 2+
[2019-02-28 10:14] LABS: Poikilocytes 2+
[2019-03-07] MEDS: Normal Saline Flush 10 ML SYR IVP (08:30)
[2019-03-07 08:52] LABS: HGB 10.8 g/dL (12.0-15.5); Mean Corp. HGB Concentration 33.8 g/dL (32.0-36.0); Mean Corpuscular Hemoglobin 32.7 pg (27.0-33.0); Mean Platelet Volume 12.7 fL (8.0-11.0); RBC Distribution Width 18.7 % (11.7-14.6); White Blood Cell Count 10.18 k/cumm (4.4-10.8)
[2019-03-07 09:08] LABS: ALT 54 U/L (12-78); AST 38 U/L (15-37); Albumin 2.2 g/dL (3.4-5.0); Alkaline Phosphatase 215 U/L (46-116); Anion Gap 11.6 mmol/L (3-11); BUN 10 mg/dL (7-18); Bilirubin, Total 0.7 mg/dL (0.2-1.0); CO2 24.4 mmol/L (21.0-32.0); CREATININE 0.87 mg/dL (0.55-1.02); Calcium 8.5 mg/dL (8.5-10.1); Chloride 104 mmol/L (98-107); Glucose 145 mg/dL (70-100); Potassium 3.6 mmol/L (3.5-5.1); Sodium 140 mmol/L (136-145); Total Protein 6.8 g/dL (6.4-8.2)
[2019-03-07 09:14] LABS: Platelet Count 164 x1000/uL (130-400)
[2019-03-07 09:16] LABS: Absolute Neutrophil Count 6.62 k/cumm (1.2-6.7); Atypical Lymphocytes % 1
[2019-03-07 09:17] LABS: Absolute Lymphocyte Count 1.63 k/cumm (1.2-3.4); Absolute Monocyte Count 1.83 k/cumm (0.11-0.7); Anisocytosis 2+; Diff Comment Manual Differential
[2019-03-07 09:18] LABS: Polychromasia Present
[2019-03-07 09:20] LABS: Nucleated RBC 2 /100WBC
[2019-03-07 10:19] LABS: Poikilocytes 1+
== END 2019-03-18 23:59 | disposition home or self-care (01) ==
LOC: INF 00:53
PROVIDERS: PCP Family Medicine; Visit Provider Internal Medicine Hematology & Oncology
DX: C25.9 Malignant neoplasm of pancreas, unspecified (principal); C78.7 Secondary malignant neoplasm of liver and intrahepatic bile duct; Z45.2 Encounter for adjustment and management of vascular access device
CPT/HCPCS: 36591; 80053; 82378; 85025; 85049; 86301

== ENCOUNTER 2019-03-07 11:48 | Outpatient (REF) | payer BC, SELFPAY ==
[2019-03-07 12:26] LABS: Bilirubin Small (Negative); Blood Negative (Negative); Clarity Cloudy; Glucose Negative (Negative); Ketones Trace mg/dL (Negative); Leukocyte Esterase Negative (Negative); Nitrite Negative (Negative); Specific Gravity 1.015 (1.005-1.025)
[2019-03-07 13:01] LABS: C & S Indicated? No/Sq. Contamination; Crystals Many Amorphous HPF (Negative); Epithelial Cells Many HPF (Negative); Mucus Moderate (Negative)
== END 2019-03-07 12:08 ==
LOC: LBN 11:48
PROVIDERS: PCP Family Medicine; Visit Provider Nurse Practitioner Adult Health
DX: C25.9 Malignant neoplasm of pancreas, unspecified (principal); C78.7 Secondary malignant neoplasm of liver and intrahepatic bile duct; R11.2 Nausea with vomiting, unspecified; T50.905A Adverse effect of unspecified drugs, medicaments and biological substances, initial encounter
CPT/HCPCS: 81003; 81015

== ENCOUNTER 2019-03-07 13:20 | Outpatient (CLI) | payer BC, SELFPAY ==
--- NOTE | 2019-03-07 14:06 | DI.RAD_ITS ---
SYMPTOMS/DIAGNOSIS: PERSISTENT COUGH ON CHEMO, PANCREATIC CA WITH METS TO LIVER, C25.9, C78.7, DRUG-INDUCED NAUSEA AND VOMITING, R11.2, T50.905A PA AND LATERAL CHEST: No previous chest films available for comparison. Recent CT showed a nodular radiodensity at the left lung base. There are patchy areas of bibasilar intrapulmonary increased radiodensity raising the possibility of pneumonia. There is a right subclavian indwelling catheter. Changes of COPD are noted. Cardiac size within normal limits. No pleural effusion seen. CONCLUSION: Findings suggesting acute bibasilar patchy consolidation. Appropriate follow-up studies requested.
== END 2019-03-07 13:40 ==
PROVIDERS: PCP Family Medicine; Visit Provider Nurse Practitioner Adult Health
DX: R05 Cough (principal); C25.9 Malignant neoplasm of pancreas, unspecified; C78.7 Secondary malignant neoplasm of liver and intrahepatic bile duct; R11.2 Nausea with vomiting, unspecified; J44.9 Chronic obstructive pulmonary disease, unspecified; R91.8 Other nonspecific abnormal finding of lung field; Z92.21 Personal history of antineoplastic chemotherapy
CPT/HCPCS: 71046

== ENCOUNTER 2019-04-07 02:07 | Outpatient (CLI) | payer BC, SELFPAY ==
--- NOTE | 2019-04-07 10:33 | DI.CT_ITS ---
SYMPTOM/DIAGNOSIS: PANCREATIC CA, ON CHEMO, RESTAGING EXAM CHEST/ABDOMEN/PELVIC CT: Comparison is made with abdomen and pelvic CT dated 01/29/19. No prior chest CT's for comparison. There is mild apical scarring and mild paraseptal emphysematous changes. No adenopathy, pleural or pericardial effusions are seen. There is a 4 mm. nodule posteriorly in the right lower lobe. The aorta shows calcification and mild atherosclerotic plaque. Coronary artery calcifications are also seen. There are no pulmonary emboli. No suspicious bony abnormalities are identified. There are a few tiny stable, low density lesions in the liver. There is no biliary dilatation. The gallbladder and spleen are unremarkable. There has been interval decrease in size of the previously noted infiltrative mass of the body of the pancreas. There is again infiltration into the splenic vessels and left adrenal gland. The left kidney is again noted to be atrophic and the right again shows compensatory hypertrophy. The right adrenal and spleen are unremarkable. There is a stable mild abdominal aortic aneurysm with mural thrombus. No adenopathy is seen. The bladder is nearly empty but unremarkable. The uterus and ovaries are also unremarkable. There is no bowel dilatation. There is no ascites. No suspicious bony lesions are identified. IMPRESSION: Interval decrease in size of the infiltrative mass in the body of the pancreas. Stable tiny liver lesions are seen. There is a 4 mm. nodule in the posterior right lower lobe.
[2019-04-07] MEDS: Omnipaque 350 MG/ML 100 ML BTL IV (10:42)
[2019-04-07] MEDS: Omnipaque 350 MG/ML 50 ML BTL PO (10:43)
[2019-04-07] MEDS: Breeza Beverage 473 ML BTL PO (10:43)
== END 2019-04-07 02:27 ==
PROVIDERS: PCP Family Medicine; Visit Provider Internal Medicine Hematology & Oncology
DX: C25.9 Malignant neoplasm of pancreas, unspecified (principal); C78.7 Secondary malignant neoplasm of liver and intrahepatic bile duct; R91.1 Solitary pulmonary nodule; Z92.21 Personal history of antineoplastic chemotherapy; Z12.89 Encounter for screening for malignant neoplasm of other sites
CPT/HCPCS: 74177; 71260; J3490; Q9967

== ENCOUNTER 2019-04-18 01:44 | Outpatient (RCR) | payer BC, SELFPAY ==
[2019-03-21] MEDS: Normal Saline Flush 10 ML SYR IVP (07:25)
[2019-03-21 07:45] LABS: Abs Immature Grans 0.03 k/cumm (0.0-0.09); Absolute Basophil Count 0.08 k/cumm (0.0-0.2); Absolute Eosinophil Count 0.09 k/cumm (0.0-0.7); Absolute Lymphocyte Count 1.36 k/cumm (1.2-3.4); Absolute Monocyte Count 1.21 k/cumm (0.11-0.7); Absolute Neutrophil Count 0.96 k/cumm (1.2-6.7); Basophils % 2.1; Eosinophils % 2.4; HCT 33.3 % (36.0-46.0); HGB 10.9 g/dL (12.0-15.5); Immature Grans % 0.8; Lymphocytes % 36.5; Mean Corp. HGB Concentration 32.7 g/dL (32.0-36.0); Mean Corpuscular Hemoglobin 33.5 pg (27.0-33.0); Mean Corpuscular Volume 102.5 fL (80-95); Mean Platelet Volume 12.9 fL (8.0-11.0); Monocytes % 32.4; Neutrophils % 25.8; RBC 3.25 m/cumm (4.00-5.20); White Blood Cell Count 3.73 k/cumm (4.4-10.8)
[2019-03-21 08:00] LABS: ALT 24 U/L (12-78); AST 25 U/L (15-37); Albumin 2.5 g/dL (3.4-5.0); Alkaline Phosphatase 129 U/L (46-116); Anion Gap 10.8 mmol/L (3-11); BUN 9 mg/dL (7-18); Bilirubin, Total 0.4 mg/dL (0.2-1.0); CO2 24.2 mmol/L (21.0-32.0); CREATININE 0.98 mg/dL (0.55-1.02); Calcium 8.5 mg/dL (8.5-10.1); Chloride 106 mmol/L (98-107); Estimated GFR 57.89 (mL/min/1.73m2); Glucose 126 mg/dL (70-100); Potassium 4.1 mmol/L (3.5-5.1); Sodium 141 mmol/L (136-145); Total Protein 6.3 g/dL (6.4-8.2)
[2019-03-21 08:13] LABS: Platelet Count 100 x1000/uL (130-400)
[2019-03-21 08:16] LABS: Anisocytosis 2+; Diff Comment RBC Morph Reviewed; Polychromasia Present
[2019-03-21 08:17] LABS: Poikilocytes 1+
[2019-03-24 10:39] LABS: CA 19-9 23 U/mL (<35)
[2019-03-24 11:14] LABS: CEA 27.5 ng/ml
[2019-03-25] MEDS: Normal Saline Flush 10 ML SYR IVP (08:45)
[2019-03-28 08:11] LABS: Abs Immature Grans 0.01 k/cumm (0.0-0.09); Absolute Basophil Count 0.08 k/cumm (0.0-0.2); Absolute Eosinophil Count 0.21 k/cumm (0.0-0.7); Absolute Lymphocyte Count 3.09 k/cumm (1.2-3.4); Absolute Monocyte Count 1.21 k/cumm (0.11-0.7); Absolute Neutrophil Count 2.39 k/cumm (1.2-6.7); Basophils % 1.1; HCT 36.6 % (36.0-46.0); HGB 11.9 g/dL (12.0-15.5); Immature Grans % 0.1; Lymphocytes % 44.2; Mean Corp. HGB Concentration 32.5 g/dL (32.0-36.0); Mean Corpuscular Hemoglobin 33.2 pg (27.0-33.0); Mean Corpuscular Volume 102.2 fL (80-95); Mean Platelet Volume 13.7 fL (8.0-11.0); Monocytes % 17.3; Neutrophils % 34.3; Platelet Count 191 x1000/uL (130-400); RBC 3.58 m/cumm (4.00-5.20); White Blood Cell Count 6.99 k/cumm (4.4-10.8)
[2019-03-28 08:15] LABS: RBC Distribution Width 21.5 % (11.7-14.6)
[2019-03-28 08:23] LABS: ALT 21 U/L (12-78); AST 28 U/L (15-37); Albumin 2.5 g/dL (3.4-5.0); Alkaline Phosphatase 124 U/L (46-116); Anion Gap 9.4 mmol/L (3-11); BUN 7 mg/dL (7-18); Bilirubin, Total 0.4 mg/dL (0.2-1.0); CO2 26.6 mmol/L (21.0-32.0); CREATININE 0.92 mg/dL (0.55-1.02); Calcium 8.6 mg/dL (8.5-10.1); Chloride 105 mmol/L (98-107); Glucose 101 mg/dL (70-100); Potassium 3.6 mmol/L (3.5-5.1); Sodium 141 mmol/L (136-145); Total Protein 5.8 g/dL (6.4-8.2)
[2019-04-07] MEDS: Normal Saline Flush 10 ML SYR IVP (08:30)
[2019-04-07] MEDS: Heparin 500 UNITS/5 ML SYRINGE IV (10:51)
[2019-04-11] MEDS: Normal Saline Flush 10 ML SYR IVP (08:26)
[2019-04-11 08:33] LABS: Absolute Basophil Count 0.05 k/cumm (0.0-0.2); Absolute Eosinophil Count 0.21 k/cumm (0.0-0.7); Absolute Lymphocyte Count 2.58 k/cumm (1.2-3.4); Absolute Monocyte Count 1.07 k/cumm (0.11-0.7); Absolute Neutrophil Count 1.54 k/cumm (1.2-6.7); Basophils % 0.9; Eosinophils % 3.9; HCT 33.2 % (36.0-46.0); HGB 10.8 g/dL (12.0-15.5); Lymphocytes % 47.3; Mean Corp. HGB Concentration 32.5 g/dL (32.0-36.0); Mean Corpuscular Volume 104.4 fL (80-95); Mean Platelet Volume 14.1 fL (8.0-11.0); Monocytes % 19.6; Neutrophils % 28.3; RBC 3.18 m/cumm (4.00-5.20); RBC Distribution Width 21.1 % (11.7-14.6); White Blood Cell Count 5.45 k/cumm (4.4-10.8)
[2019-04-11 08:47] LABS: ALT 20 U/L (12-78); AST 21 U/L (15-37); Albumin 2.7 g/dL (3.4-5.0); Alkaline Phosphatase 96 U/L (46-116); Anion Gap 8.5 mmol/L (3-11); BUN 9 mg/dL (7-18); Bilirubin, Total 0.3 mg/dL (0.2-1.0); CO2 25.5 mmol/L (21.0-32.0); CREATININE 0.73 mg/dL (0.55-1.02); Calcium 8.7 mg/dL (8.5-10.1); Chloride 108 mmol/L (98-107); Glucose 106 mg/dL (70-100); Potassium 3.8 mmol/L (3.5-5.1); Sodium 142 mmol/L (136-145); Total Protein 5.8 g/dL (6.4-8.2)
[2019-04-11 09:00] LABS: Anisocytosis 2+; Diff Comment Diff Reviewed; Hypochromasia 1+; Macrocytosis 1+; Platelet Count 63 x1000/uL (130-400); Polychromasia Present
[2019-04-14 10:01] LABS: CEA 19.3 ng/ml
[2019-04-14 10:28] LABS: CA 19-9 22 U/mL (<35)
[2019-04-18] MEDS: Normal Saline Flush 10 ML SYR IVP (11:39)
[2019-04-18 12:01] LABS: Abs Immature Grans 0.01 k/cumm (0.0-0.09); Absolute Basophil Count 0.13 k/cumm (0.0-0.2); Absolute Eosinophil Count 0.25 k/cumm (0.0-0.7); Absolute Lymphocyte Count 2.62 k/cumm (1.2-3.4); Absolute Monocyte Count 1.28 k/cumm (0.11-0.7); Absolute Neutrophil Count 2.58 k/cumm (1.2-6.7); Basophils % 1.9; Eosinophils % 3.6; HCT 37.7 % (36.0-46.0); HGB 12.3 g/dL (12.0-15.5); Immature Grans % 0.1; Lymphocytes % 38.1; Mean Corp. HGB Concentration 32.6 g/dL (32.0-36.0); Mean Corpuscular Hemoglobin 34.3 pg (27.0-33.0); Monocytes % 18.6; Neutrophils % 37.7; RBC 3.59 m/cumm (4.00-5.20); RBC Distribution Width 20.6 % (11.7-14.6); White Blood Cell Count 6.87 k/cumm (4.4-10.8)
[2019-04-18 12:21] LABS: ALT 16 U/L (12-78); AST 24 U/L (15-37); Albumin 2.9 g/dL (3.4-5.0); Alkaline Phosphatase 108 U/L (46-116); Anion Gap 12.1 mmol/L (3-11); BUN 8 mg/dL (7-18); Bilirubin, Total 0.4 mg/dL (0.2-1.0); CO2 24.9 mmol/L (21.0-32.0); CREATININE 0.88 mg/dL (0.55-1.02); Calcium 8.7 mg/dL (8.5-10.1); Chloride 106 mmol/L (98-107); Glucose 103 mg/dL (70-100); Potassium 3.8 mmol/L (3.5-5.1); Sodium 143 mmol/L (136-145); Total Protein 6.1 g/dL (6.4-8.2)
[2019-04-18 12:34] LABS: Platelet Count 168 x1000/uL (130-400)
[2019-04-18 12:35] LABS: Anisocytosis 2+; Diff Comment RBC Morph Reviewed; Macrocytosis 2+; Polychromasia Present
[2019-04-18 12:36] LABS: Poikilocytes 2+
[2019-04-21 10:03] LABS: CEA 19.5 ng/ml
[2019-04-21 10:47] LABS: CA 19-9 23 U/mL (<35)
== END 2019-04-18 23:59 | disposition home or self-care (01) ==
LOC: INF 01:44
PROVIDERS: Internal Medicine Hematology & Oncology; PCP Family Medicine; Visit Provider Nurse Practitioner Adult Health
DX: C25.9 Malignant neoplasm of pancreas, unspecified (principal); C78.7 Secondary malignant neoplasm of liver and intrahepatic bile duct; R97.0 Elevated carcinoembryonic antigen [CEA]; Z45.2 Encounter for adjustment and management of vascular access device
CPT/HCPCS: 36591; 80053; 96523; 82378; 85025; 86301

== ENCOUNTER 2019-05-16 09:30 | Outpatient (RCR) | payer BC, SELFPAY ==
[2019-05-02] MEDS: Normal Saline Flush 10 ML SYR IVP (12:00)
[2019-05-02 12:24] LABS: Absolute Basophil Count 0.03 k/cumm (0.0-0.2); Absolute Eosinophil Count 0.18 k/cumm (0.0-0.7); Absolute Lymphocyte Count 1.92 k/cumm (1.2-3.4); Absolute Monocyte Count 0.94 k/cumm (0.11-0.7); Absolute Neutrophil Count 1.45 k/cumm (1.2-6.7); Basophils % 0.7; HCT 33.8 % (36.0-46.0); Lymphocytes % 42.5; Mean Corp. HGB Concentration 32.5 g/dL (32.0-36.0); Mean Corpuscular Hemoglobin 34.6 pg (27.0-33.0); Mean Corpuscular Volume 106.3 fL (80-95); Mean Platelet Volume 12.3 fL (8.0-11.0); Monocytes % 20.8; RBC 3.18 m/cumm (4.00-5.20); RBC Distribution Width 19.3 % (11.7-14.6); White Blood Cell Count 4.52 k/cumm (4.4-10.8)
[2019-05-02 12:35] LABS: ALT 24 U/L (12-78); AST 26 U/L (15-37); Albumin 2.7 g/dL (3.4-5.0); Alkaline Phosphatase 104 U/L (46-116); Anion Gap 8.4 mmol/L (3-11); BUN 6 mg/dL (7-18); Bilirubin, Total 0.3 mg/dL (0.2-1.0); CO2 26.6 mmol/L (21.0-32.0); CREATININE 0.76 mg/dL (0.55-1.02); Calcium 8.8 mg/dL (8.5-10.1); Chloride 106 mmol/L (98-107); Glucose 106 mg/dL (70-100); Potassium 3.7 mmol/L (3.5-5.1); Sodium 141 mmol/L (136-145); Total Protein 5.9 g/dL (6.4-8.2)
[2019-05-02 13:08] LABS: Platelet Count 94 x1000/uL (130-400)
[2019-05-02 13:09] LABS: Anisocytosis 2+; Diff Comment RBC Morph Reviewed; Macrocytosis 2+
[2019-05-05 11:07] LABS: CEA 15.3 ng/ml
[2019-05-05 12:12] LABS: CA 19-9 23 U/mL (<35)
[2019-05-16] MEDS: Normal Saline Flush 10 ML SYR IVP (09:10)
[2019-05-16 09:57] LABS: Abs Immature Grans 0.01 k/cumm (0.0-0.09); Absolute Basophil Count 0.03 k/cumm (0.0-0.2); Absolute Eosinophil Count 0.18 k/cumm (0.0-0.7); Absolute Lymphocyte Count 1.79 k/cumm (1.2-3.4); Absolute Monocyte Count 0.88 k/cumm (0.11-0.7); Absolute Neutrophil Count 1.39 k/cumm (1.2-6.7); Basophils % 0.7; Eosinophils % 4.2; HCT 33.8 % (36.0-46.0); HGB 11.3 g/dL (12.0-15.5); Immature Grans % 0.2; Lymphocytes % 41.8; Mean Corp. HGB Concentration 33.4 g/dL (32.0-36.0); Mean Corpuscular Hemoglobin 35.6 pg (27.0-33.0); Mean Corpuscular Volume 106.6 fL (80-95); Mean Platelet Volume 13.7 fL (8.0-11.0); Monocytes % 20.6; Neutrophils % 32.5; RBC 3.17 m/cumm (4.00-5.20); RBC Distribution Width 18.9 % (11.7-14.6); White Blood Cell Count 4.28 k/cumm (4.4-10.8)
[2019-05-16 10:44] LABS: Anisocytosis 2+; Diff Comment Diff Reviewed; Macrocytosis 1+; Polychromasia Present
[2019-05-16 10:45] LABS: Poikilocytes 1+
[2019-05-16 10:46] LABS: Platelet Count 65 x1000/uL (130-400)
[2019-05-16 10:57] LABS: ALT 22 U/L (12-78); AST 30 U/L (15-37); Albumin 2.8 g/dL (3.4-5.0); Alkaline Phosphatase 95 U/L (46-116); Anion Gap 8.5 mmol/L (3-11); BUN 8 mg/dL (7-18); Bilirubin, Total 0.3 mg/dL (0.2-1.0); CO2 24.5 mmol/L (21.0-32.0); CREATININE 0.73 mg/dL (0.55-1.02); Calcium 8.7 mg/dL (8.5-10.1); Chloride 109 mmol/L (98-107); Glucose 100 mg/dL (70-100); Potassium 3.8 mmol/L (3.5-5.1); Sodium 142 mmol/L (136-145); Total Protein 6.1 g/dL (6.4-8.2)
[2019-05-19 09:24] LABS: CEA 14.5 ng/ml
[2019-05-19 11:26] LABS: CA 19-9 19 U/mL (<35)
== END 2019-05-18 23:59 | disposition home or self-care (01) ==
LOC: INF 09:30
PROVIDERS: PCP Family Medicine; Visit Provider Internal Medicine Hematology & Oncology
DX: C25.9 Malignant neoplasm of pancreas, unspecified (principal); C78.7 Secondary malignant neoplasm of liver and intrahepatic bile duct; Z45.2 Encounter for adjustment and management of vascular access device
CPT/HCPCS: 36591; 80053; 82378; 85025; 86301

== ENCOUNTER 2019-06-06 01:05 | Outpatient (CLI) | payer BC, SELFPAY ==
[2019-06-06] MEDS: Breeza Beverage 473 ML BTL PO ×2 (09:30→10:59)
--- NOTE | 2019-06-06 10:00 | DI.CT_ITS ---
SYMPTOM/DIAGNOSIS: PANCREATIC CA, METS TO LIVER, C25.9, C78.7, ON CHEMO, RESTAGING EXAM CHEST, ABDOMEN AND PELVIC CT: CT scan of the chest, abdomen and pelvis was performed following the uneventful administration of intravenous and oral contrast material. Comparison examination is 04/07/19. ABDOMEN AND PELVIS: The liver is normal in size. There are again seen tiny hypodensities within the liver. They appear stable in number. No new nodules are seen. The portal, superior mesenteric and splenic veins are patent. The gallbladder is negative. There is no biliary ductal dilatation. There is again seen a mass in the body of the pancreas. There does not appear to be any significant in size of the mass in the body of the pancreas. It measures 2.7 by 2 cm. compared with 2.8 by 2.0 cm. on the prior examination. There is atrophy of the tail of the pancreas again noted. The spleen is stable. No adrenal mass is seen. There is again seen atrophy of the left kidney with compensatory hypertrophy of the right kidney. There are hypodense lesions seen in the kidneys, likely reflecting cysts. No obstructive uropathy is present. The urinary bladder is intact. The bladder wall appears thickened diffusely but this may be due to decrease distension. Cystitis cannot be excluded. Reproductive organs are unremarkable. There is a 3.1 cm. infrarenal abdominal aortic aneurysm. No significant abdominal or pelvic adenopathy or ascites is present. No pneumoperitoneum is seen. There is diverticulosis of the colon but no evidence of acute diverticulitis. No findings to suggest an acute appendicitis are present. No suspicious osseous lesions are identified. IMPRESSION; Stable hepatic and pancreas lesions. CHEST: There is atherosclerosis of the thoracic aorta. Heart size is at the upper limits of normal. No significant pericardial effusion is seen. Coronary artery calcifications are present. No significant thoracic adenopathy, pleural effusion or pneumothorax is identified. There is a stable 3 mm. nodule in the right upper lobe. The 4 mm. subpleural nodule in the left lower lobe appears stable. The 4 mm. nodule in the anterior aspect of the left upper lobe appears stable. No new pulmonary nodules are seen. No acute infiltrates are present. The tracheobronchial tree is unremarkable. Degenerative changes are seen in the spine. No suspicious osseous lesions are identified. IMPRESSION: Stable pulmonary nodules.
[2019-06-06] MEDS: Omnipaque 350 MG/ML 100 ML BTL IJ (10:58)
[2019-06-06] MEDS: Omnipaque 350 MG/ML 50 ML BTL PO (10:59)
== END 2019-06-06 01:25 ==
PROVIDERS: PCP Family Medicine; Visit Provider Internal Medicine Hematology & Oncology
DX: C25.9 Malignant neoplasm of pancreas, unspecified (principal); C78.7 Secondary malignant neoplasm of liver and intrahepatic bile duct; Z12.89 Encounter for screening for malignant neoplasm of other sites; I71.4 Abdominal aortic aneurysm, without rupture; I51.7 Cardiomegaly; R91.8 Other nonspecific abnormal finding of lung field
CPT/HCPCS: 74177; 71260; J3490; Q9967

== ENCOUNTER 2019-06-13 02:13 | Outpatient (RCR) | payer BC, SELFPAY ==
[2019-05-26] MEDS: Normal Saline Flush 10 ML SYR IVP (08:05)
[2019-05-26 08:18] LABS: Abs Immature Grans 0.01 k/cumm (0.0-0.09); Absolute Basophil Count 0.07 k/cumm (0.0-0.2); Absolute Lymphocyte Count 1.95 k/cumm (1.2-3.4); Absolute Monocyte Count 1.16 k/cumm (0.11-0.7); Absolute Neutrophil Count 3.23 k/cumm (1.2-6.7); Basophils % 1.1; Eosinophils % 1.5; HCT 35.8 % (36.0-46.0); HGB 11.7 g/dL (12.0-15.5); Immature Grans % 0.2; Lymphocytes % 29.9; Mean Corp. HGB Concentration 32.7 g/dL (32.0-36.0); Mean Corpuscular Hemoglobin 34.8 pg (27.0-33.0); Mean Corpuscular Volume 106.5 fL (80-95); Monocytes % 17.8; Neutrophils % 49.5; RBC 3.36 m/cumm (4.00-5.20); RBC Distribution Width 17.8 % (11.7-14.6); White Blood Cell Count 6.52 k/cumm (4.4-10.8)
[2019-05-26 08:26] LABS: ALT 13 U/L (12-78); AST 22 U/L (15-37); Albumin 2.8 g/dL (3.4-5.0); Alkaline Phosphatase 95 U/L (46-116); Anion Gap 9.1 mmol/L (3-11); BUN 11 mg/dL (7-18); Bilirubin, Total 0.3 mg/dL (0.2-1.0); CO2 24.9 mmol/L (21.0-32.0); CREATININE 0.74 mg/dL (0.55-1.02); Calcium 8.6 mg/dL (8.5-10.1); Chloride 108 mmol/L (98-107); Glucose 84 mg/dL (70-100); Potassium 3.8 mmol/L (3.5-5.1); Sodium 142 mmol/L (136-145); Total Protein 5.9 g/dL (6.4-8.2)
[2019-05-26 08:59] LABS: Anisocytosis 2+; Diff Comment Diff Reviewed; Macrocytosis 3+; Platelet Count 140 x1000/uL (130-400); Poikilocytes 1+; Polychromasia Present
[2019-05-28 09:44] LABS: CA 19-9 34 U/mL (<35)
[2019-06-06] MEDS: Heparin 500 UNITS/5 ML SYRINGE IV (09:26)
[2019-06-06] MEDS: Normal Saline Flush 10 ML SYR IVP (09:26)
[2019-06-06 09:34] LABS: Abs Immature Grans 0.01 k/cumm (0.0-0.09); Absolute Basophil Count 0.04 k/cumm (0.0-0.2); Absolute Eosinophil Count 0.05 k/cumm (0.0-0.7); Absolute Lymphocyte Count 1.89 k/cumm (1.2-3.4); Absolute Monocyte Count 1.31 k/cumm (0.11-0.7); Absolute Neutrophil Count 1.71 k/cumm (1.2-6.7); Basophils % 0.8; HCT 33.6 % (36.0-46.0); HGB 11.4 g/dL (12.0-15.5); Immature Grans % 0.2; Lymphocytes % 37.7; Mean Corp. HGB Concentration 33.9 g/dL (32.0-36.0); Mean Corpuscular Volume 103.1 fL (80-95); Mean Platelet Volume 13.7 fL (8.0-11.0); Monocytes % 26.1; Neutrophils % 34.2; RBC 3.26 m/cumm (4.00-5.20); RBC Distribution Width 17.3 % (11.7-14.6); White Blood Cell Count 5.01 k/cumm (4.4-10.8)
[2019-06-06 09:50] LABS: ALT 28 U/L (12-78); AST 34 U/L (15-37); Albumin 2.6 g/dL (3.4-5.0); Alkaline Phosphatase 92 U/L (46-116); Anion Gap 10.6 mmol/L (3-11); BUN 6 mg/dL (7-18); Bilirubin, Total 0.4 mg/dL (0.2-1.0); CO2 25.4 mmol/L (21.0-32.0); CREATININE 0.59 mg/dL (0.55-1.02); Calcium 8.7 mg/dL (8.5-10.1); Chloride 107 mmol/L (98-107); Glucose 81 mg/dL (70-100); Potassium 3.4 mmol/L (3.5-5.1); Sodium 143 mmol/L (136-145); Total Protein 6.1 g/dL (6.4-8.2)
[2019-06-06 10:01] LABS: Anisocytosis 1+; Diff Comment Diff Reviewed; Hypochromasia 1+; Macrocytosis 1+; Platelet Count 52 x1000/uL (130-400)
[2019-06-06 10:02] LABS: Basophilic Stippling Present; Polychromasia Present
[2019-06-13] MEDS: Normal Saline Flush 10 ML SYR IVP (08:31)
[2019-06-13 08:57] LABS: Abs Immature Grans 0.02 k/cumm (0.0-0.09); Absolute Basophil Count 0.07 k/cumm (0.0-0.2); Absolute Eosinophil Count 0.17 k/cumm (0.0-0.7); Absolute Monocyte Count 1.16 k/cumm (0.11-0.7); Absolute Neutrophil Count 1.55 k/cumm (1.2-6.7); Basophils % 1.4; Eosinophils % 3.5; HCT 35.5 % (36.0-46.0); HGB 11.8 g/dL (12.0-15.5); Immature Grans % 0.4; Mean Corp. HGB Concentration 33.2 g/dL (32.0-36.0); Mean Corpuscular Volume 105.3 fL (80-95); Monocytes % 23.8; Neutrophils % 31.9; RBC 3.37 m/cumm (4.00-5.20); RBC Distribution Width 19.9 % (11.7-14.6); White Blood Cell Count 4.87 k/cumm (4.4-10.8)
[2019-06-13 09:13] LABS: ALT 17 U/L (12-78); AST 29 U/L (15-37); Albumin 2.8 g/dL (3.4-5.0); Alkaline Phosphatase 91 U/L (46-116); BUN 8 mg/dL (7-18); Bilirubin, Total 0.3 mg/dL (0.2-1.0); CREATININE 0.61 mg/dL (0.55-1.02); Calcium 8.8 mg/dL (8.5-10.1); Chloride 108 mmol/L (98-107); Glucose 93 mg/dL (70-100); Potassium 3.5 mmol/L (3.5-5.1); Sodium 145 mmol/L (136-145); Total Protein 6.1 g/dL (6.4-8.2)
[2019-06-13 09:33] LABS: Platelet Count 143 x1000/uL (130-400)
[2019-06-13 09:34] LABS: Anisocytosis 1+; Diff Comment RBC Morph Reviewed; Macrocytosis 2+
[2019-06-16 14:23] LABS: CA 19-9 18 U/mL (<35)
== END 2019-06-18 23:59 | disposition home or self-care (01) ==
LOC: INF 02:13
PROVIDERS: PCP Family Medicine; Visit Provider Internal Medicine Hematology & Oncology
DX: C25.9 Malignant neoplasm of pancreas, unspecified (principal); C78.7 Secondary malignant neoplasm of liver and intrahepatic bile duct; Z45.2 Encounter for adjustment and management of vascular access device
CPT/HCPCS: 36591; 80053; 82378; 85025; 86301

== ENCOUNTER 2019-07-04 02:47 | Outpatient (RCR) | payer BC, SELFPAY ==
[2019-07-04] MEDS: Normal Saline Flush 10 ML SYR IVP (10:00)
[2019-07-04 10:25] LABS: Abs Immature Grans 0.02 k/cumm (0.0-0.09); Absolute Basophil Count 0.07 k/cumm (0.0-0.2); Absolute Eosinophil Count 0.22 k/cumm (0.0-0.7); Absolute Lymphocyte Count 2.02 k/cumm (1.2-3.4); Absolute Monocyte Count 1.53 k/cumm (0.11-0.7); Absolute Neutrophil Count 1.81 k/cumm (1.2-6.7); Basophils % 1.2; Eosinophils % 3.9; HCT 34.8 % (36.0-46.0); HGB 11.3 g/dL (12.0-15.5); Immature Grans % 0.4; Lymphocytes % 35.6; Mean Corp. HGB Concentration 32.5 g/dL (32.0-36.0); Mean Corpuscular Hemoglobin 34.3 pg (27.0-33.0); Mean Corpuscular Volume 105.8 fL (80-95); Neutrophils % 31.9; RBC 3.29 m/cumm (4.00-5.20); RBC Distribution Width 20.8 % (11.7-14.6); White Blood Cell Count 5.67 k/cumm (4.4-10.8)
[2019-07-04 10:45] LABS: ALT 16 U/L (12-78); AST 26 U/L (15-37); Albumin 2.8 g/dL (3.4-5.0); Alkaline Phosphatase 87 U/L (46-116); Anion Gap 9.9 mmol/L (3-11); BUN 10 mg/dL (7-18); Bilirubin, Total 0.3 mg/dL (0.2-1.0); CO2 26.1 mmol/L (21.0-32.0); Calcium 8.5 mg/dL (8.5-10.1); Chloride 108 mmol/L (98-107); Glucose 137 mg/dL (70-100); Potassium 3.8 mmol/L (3.5-5.1); Sodium 144 mmol/L (136-145)
[2019-07-04 11:09] LABS: Diff Comment Diff Reviewed
[2019-07-04 11:10] LABS: Anisocytosis 2+; Platelet Count 122 x1000/uL (130-400)
[2019-07-04 11:11] LABS: Hypochromasia 1+; Macrocytosis 1+
[2019-07-04 11:12] LABS: Poikilocytes 1+
[2019-07-07 09:25] LABS: CA 19-9 14 U/mL (<35)
== END 2019-07-19 23:59 | disposition home or self-care (01) ==
LOC: INF 02:47
PROVIDERS: PCP Family Medicine; Visit Provider Internal Medicine Hematology & Oncology
DX: C25.9 Malignant neoplasm of pancreas, unspecified (principal); C78.7 Secondary malignant neoplasm of liver and intrahepatic bile duct; Z45.2 Encounter for adjustment and management of vascular access device
CPT/HCPCS: 36591; 80053; 85025; 86301

== ENCOUNTER 2019-08-07 15:27 | Outpatient (CLI) | payer BC, SELFPAY ==
[2019-08-07] MEDS: Omnipaque 350 MG/ML 100 ML BTL IJ (09:24)
[2019-08-07] MEDS: Omnipaque 350 MG/ML 50 ML BTL PO (09:25)
[2019-08-07] MEDS: Breeza Beverage 473 ML BTL PO (09:27)
--- NOTE | 2019-08-07 09:28 | DI.CT_ITS ---
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 TECHNIQUE: The CT examination of the chest, abdomen and pelvis was carried out according to the usua l protocol with intravenous administration of 100 cc of Omnipaque 350. COMPARISON: CT CHEST/ABD/PEL W from 06/06/2019 FINDINGS: Chest: There is no evidence of adenopathy. There is no evidence of a pleural effusion. A 3 mm nodule in the right upper lobe is unchanged. A 4 mm subpleural nodule in the left lower lobe is unchanged. A 4 mm nodule in the anterior aspect of the left upper lobe is likewise stable. No new nodules are ap parent. There is no evidence of hilar or mediastinal adenopathy. The heart is normal size. There is n o pericardial effusion. Again noted is coronary artery calcification. There are atherosclerotic berger es involving the aorta without evidence of an aneurysm. No appreciable interval change in the status of the chest when compared with the prior study. No new pulmonary nodules are identified. Abdomen and pelvis: Compared with the previous study, again identified are numerous densities in the liver. These have increased in number. The gallbladder is intact. There is no evidence of biliary dil atation. The mass in the body of the pancreas is unchanged in size. Again noted are the atrophic cai ges involving the pancreatic tail. Again noted are atrophic changes involving the left kidney with co mpensatory hypertrophy of the right kidney. Small bilateral renal cysts are identified. There is no e vidence of hydronephrosis. The bladder is normal. The reproductive organs as visualized are intact. A gain demonstrated is infrarenal aortic aneurysm, unchanged. No pelvic or abdominal adenopathy is iden tified. There is no evidence of ascites. Colonic diverticulosis is evident without evidence of divert iculitis. There is nothing on the examination to suggest an acute appendix. No suspicious bony abnorm alities are seen. IMPRESSION: New lesions in the liver are demonstrated, some of which have increased in size when compared with th e previous study. There has been otherwise no significant interval change when compared with the prio r examination.
== END 2019-08-07 15:47 ==
PROVIDERS: PCP Family Medicine; Visit Provider Registered Nurse Oncology
DX: C25.9 Malignant neoplasm of pancreas, unspecified (principal); C78.7 Secondary malignant neoplasm of liver and intrahepatic bile duct; R91.1 Solitary pulmonary nodule
CPT/HCPCS: 74177; 71260; J3490; Q9967

== ENCOUNTER 2019-08-15 02:14 | Outpatient (RCR) | payer BC, SELFPAY ==
[2019-07-25] MEDS: Normal Saline Flush 10 ML SYR IVP (10:34)
[2019-07-25 10:38] LABS: Abs Immature Grans 0.01 k/cumm (0.0-0.09); Absolute Basophil Count 0.08 k/cumm (0.0-0.2); Absolute Eosinophil Count 0.22 k/cumm (0.0-0.7); Absolute Lymphocyte Count 1.92 k/cumm (1.2-3.4); Absolute Monocyte Count 1.67 k/cumm (0.11-0.7); Basophils % 1.4; Eosinophils % 3.8; HCT 34.3 % (36.0-46.0); HGB 11.8 g/dL (12.0-15.5); Immature Grans % 0.2; Lymphocytes % 33.1; Mean Corp. HGB Concentration 34.4 g/dL (32.0-36.0); Mean Corpuscular Hemoglobin 35.9 pg (27.0-33.0); Mean Corpuscular Volume 104.3 fL (80-95); Mean Platelet Volume 14.3 fL (8.0-11.0); Monocytes % 28.8; Neutrophils % 32.7; Platelet Count 113 x1000/uL (130-400); RBC 3.29 m/cumm (4.00-5.20); RBC Distribution Width 20.4 % (11.7-14.6)
[2019-07-25 11:02] LABS: Anisocytosis 2+; Basophilic Stippling Present; Diff Comment Agrees w/ Instrument; Polychromasia Present
[2019-07-25 11:50] LABS: ALT 20 U/L (14-59); AST 33 U/L (15-37); Albumin 2.7 g/dL (3.4-5.0); Alkaline Phosphatase 103 U/L (46-116); Anion Gap 8.9 mmol/L (3-11); BUN 9 mg/dL (7-18); Bilirubin, Total 0.3 mg/dL (0.2-1.0); CO2 27.1 mmol/L (21.0-32.0); CREATININE 0.76 mg/dL (0.55-1.02); Calcium 8.6 mg/dL (8.5-10.1); Chloride 105 mmol/L (98-107); Glucose 87 mg/dL (70-100); Potassium 3.8 mmol/L (3.5-5.1); Sodium 141 mmol/L (136-145); Total Protein 6.2 g/dL (6.4-8.2)
[2019-07-28 11:55] LABS: CA 19-9 15 U/mL (<35)
[2019-08-07] MEDS: Normal Saline Flush 10 ML SYR IVP (08:18)
[2019-08-07] MEDS: Heparin 500 UNITS/5 ML SYRINGE IV (08:18)
[2019-08-15] MEDS: Normal Saline Flush 10 ML SYR IVP (08:34)
[2019-08-15 08:43] LABS: Abs Immature Grans 0.01 k/cumm (0.0-0.09); HCT 34.8 % (36.0-46.0); HGB 11.8 g/dL (12.0-15.5); Mean Corp. HGB Concentration 33.9 g/dL (32.0-36.0); Mean Corpuscular Hemoglobin 35.9 pg (27.0-33.0); Mean Corpuscular Volume 105.8 fL (80-95); Mean Platelet Volume 13.5 fL (8.0-11.0); Platelet Count 119 x1000/uL (130-400); RBC 3.29 m/cumm (4.00-5.20); White Blood Cell Count 6.07 k/cumm (4.4-10.8)
[2019-08-15 09:03] LABS: Absolute Lymphocyte Count 2.12 k/cumm (1.2-3.4); Absolute Monocyte Count 1.21 k/cumm (0.11-0.7); Absolute Neutrophil Count 2.55 k/cumm (1.2-6.7); Atypical Lymphocytes % 5
[2019-08-15 09:04] LABS: Absolute Eosinophil Count 0.18 k/cumm (0.0-0.7); Anisocytosis 2+; Diff Comment Manual Differential; Macrocytosis 2+; Polychromasia Present
[2019-08-15 09:05] LABS: Poikilocytes 1+
[2019-08-15 09:06] LABS: ALT 14 U/L (14-59); AST 32 U/L (15-37); Albumin 2.8 g/dL (3.4-5.0); Alkaline Phosphatase 119 U/L (46-116); Anion Gap 6.3 mmol/L (3-11); BUN 10 mg/dL (7-18); Bilirubin, Total 0.5 mg/dL (0.2-1.0); CO2 28.7 mmol/L (21.0-32.0); CREATININE 0.75 mg/dL (0.55-1.02); Calcium 8.6 mg/dL (8.5-10.1); Chloride 105 mmol/L (98-107); Glucose 87 mg/dL (70-100); Potassium 3.7 mmol/L (3.5-5.1); Sodium 140 mmol/L (136-145); Total Protein 6.4 g/dL (6.4-8.2)
[2019-08-18 11:52] LABS: CA 19-9 15 U/mL (<35)
== END 2019-08-18 23:59 | disposition home or self-care (01) ==
LOC: INF 02:14
PROVIDERS: PCP Family Medicine; Visit Provider Internal Medicine Hematology & Oncology
DX: C25.9 Malignant neoplasm of pancreas, unspecified (principal); C78.7 Secondary malignant neoplasm of liver and intrahepatic bile duct; Z45.2 Encounter for adjustment and management of vascular access device
CPT/HCPCS: 36591; 80053; 96523; 85025; 86301

== ENCOUNTER 2019-09-12 02:21 | Outpatient (RCR) | payer BC, SELFPAY ==
[2019-08-29] MEDS: Normal Saline Flush 10 ML SYR IVP (09:41)
[2019-08-29 09:53] LABS: Abs Immature Grans 0.01 k/cumm (0.0-0.09); Absolute Basophil Count 0.03 k/cumm (0.0-0.2); Absolute Eosinophil Count 0.16 k/cumm (0.0-0.7); Absolute Lymphocyte Count 1.72 k/cumm (1.2-3.4); Absolute Monocyte Count 0.85 k/cumm (0.11-0.7); Absolute Neutrophil Count 1.85 k/cumm (1.2-6.7); Basophils % 0.6; Eosinophils % 3.5; HCT 35.1 % (36.0-46.0); Immature Grans % 0.2; Lymphocytes % 37.2; Mean Corp. HGB Concentration 34.2 g/dL (32.0-36.0); Mean Corpuscular Hemoglobin 35.2 pg (27.0-33.0); Mean Corpuscular Volume 102.9 fL (80-95); Monocytes % 18.4; Neutrophils % 40.1; RBC 3.41 m/cumm (4.00-5.20); White Blood Cell Count 4.62 k/cumm (4.4-10.8)
[2019-08-29 10:15] LABS: Platelet Count 39 x1000/uL (130-400)
[2019-08-29 10:20] LABS: ALT 14 U/L (14-59); AST 33 U/L (15-37); Albumin 2.8 g/dL (3.4-5.0); Alkaline Phosphatase 125 U/L (46-116); Anion Gap 9.2 mmol/L (3-11); BUN 13 mg/dL (7-18); Bilirubin, Total 0.5 mg/dL (0.2-1.0); CO2 25.8 mmol/L (21.0-32.0); CREATININE 0.81 mg/dL (0.55-1.02); Calcium 8.7 mg/dL (8.5-10.1); Chloride 105 mmol/L (98-107); Glucose 101 mg/dL (70-100); Potassium 3.7 mmol/L (3.5-5.1); Sodium 140 mmol/L (136-145); Total Protein 6.6 g/dL (6.4-8.2)
[2019-09-01 15:07] LABS: CA 19-9 13 U/mL (<35)
[2019-09-05 10:20] LABS: Absolute Basophil Count 0.03 k/cumm (0.0-0.2); Absolute Eosinophil Count 0.15 k/cumm (0.0-0.7); Absolute Lymphocyte Count 1.57 k/cumm (1.2-3.4); Absolute Monocyte Count 1.36 k/cumm (0.11-0.7); Basophils % 0.9; Eosinophils % 4.4; HCT 36.2 % (36.0-46.0); Lymphocytes % 45.6; Mean Corp. HGB Concentration 33.1 g/dL (32.0-36.0); Mean Corpuscular Volume 102.5 fL (80-95); Monocytes % 39.5; Neutrophils % 9.6; RBC 3.53 m/cumm (4.00-5.20); White Blood Cell Count 3.44 k/cumm (4.4-10.8)
[2019-09-05] MEDS: Normal Saline Flush 10 ML SYR IVP (10:24)
[2019-09-05 10:38] LABS: ALT 12 U/L (14-59); AST 30 U/L (15-37); Albumin 2.7 g/dL (3.4-5.0); Alkaline Phosphatase 123 U/L (46-116); Anion Gap 10.2 mmol/L (3-11); BUN 8 mg/dL (7-18); Bilirubin, Total 0.5 mg/dL (0.2-1.0); CO2 26.8 mmol/L (21.0-32.0); CREATININE 0.77 mg/dL (0.55-1.02); Calcium 8.9 mg/dL (8.5-10.1); Chloride 103 mmol/L (98-107); Glucose 89 mg/dL (70-100); Potassium 3.7 mmol/L (3.5-5.1); Sodium 140 mmol/L (136-145); Total Protein 6.5 g/dL (6.4-8.2)
[2019-09-05 10:47] LABS: Absolute Neutrophil Count 0.33 k/cumm (1.2-6.7)
[2019-09-05 10:48] LABS: Anisocytosis 2+; Diff Comment Diff Reviewed; Macrocytosis 2+; Platelet Count 73 x1000/uL (130-400); Poikilocytes 1+; Polychromasia Present
[2019-09-08 10:53] LABS: CA 19-9 18 U/mL (<35)
[2019-09-12] MEDS: Normal Saline Flush 10 ML SYR IVP (09:46)
[2019-09-12 09:58] LABS: Abs Immature Grans 0.01 k/cumm (0.0-0.09); Absolute Basophil Count 0.05 k/cumm (0.0-0.2); Absolute Eosinophil Count 0.18 k/cumm (0.0-0.7); Absolute Lymphocyte Count 1.57 k/cumm (1.2-3.4); Absolute Monocyte Count 1.48 k/cumm (0.11-0.7); Absolute Neutrophil Count 5.23 k/cumm (1.2-6.7); Basophils % 0.6; Eosinophils % 2.1; HGB 12.1 g/dL (12.0-15.5); Immature Grans % 0.1; Lymphocytes % 18.4; Mean Corp. HGB Concentration 32.7 g/dL (32.0-36.0); Mean Corpuscular Hemoglobin 33.2 pg (27.0-33.0); Mean Corpuscular Volume 101.4 fL (80-95); Mean Platelet Volume 12.6 fL (8.0-11.0); Monocytes % 17.4; Neutrophils % 61.4; RBC 3.65 m/cumm (4.00-5.20); RBC Distribution Width 17.6 % (11.7-14.6); White Blood Cell Count 8.52 k/cumm (4.4-10.8)
[2019-09-12 10:19] LABS: ALT 17 U/L (14-59); AST 39 U/L (15-37); Albumin 2.6 g/dL (3.4-5.0); Alkaline Phosphatase 137 U/L (46-116); Anion Gap 8.5 mmol/L (3-11); BUN 6 mg/dL (7-18); Bilirubin, Total 0.6 mg/dL (0.2-1.0); CO2 28.5 mmol/L (21.0-32.0); CREATININE 0.78 mg/dL (0.55-1.02); Calcium 8.8 mg/dL (8.5-10.1); Chloride 102 mmol/L (98-107); Glucose 95 mg/dL (70-100); Potassium 3.7 mmol/L (3.5-5.1); Sodium 139 mmol/L (136-145); Total Protein 6.4 g/dL (6.4-8.2)
[2019-09-12 10:50] LABS: Platelet Count 92 x1000/uL (130-400)
[2019-09-15 10:27] LABS: CA 19-9 13 U/mL (<35)
== END 2019-09-18 23:59 | disposition home or self-care (01) ==
LOC: INF 02:21
PROVIDERS: PCP Family Medicine; Visit Provider Internal Medicine Hematology & Oncology
DX: C25.9 Malignant neoplasm of pancreas, unspecified (principal); C78.7 Secondary malignant neoplasm of liver and intrahepatic bile duct; Z45.2 Encounter for adjustment and management of vascular access device
CPT/HCPCS: 36591; 80053; 85025; 86301

== ENCOUNTER 2019-09-25 03:13 | Outpatient (RCR) | payer BC, SELFPAY ==
[2019-09-19] MEDS: Normal Saline Flush 10 ML SYR IVP (10:20)
[2019-09-19 10:29] LABS: HCT 33.9 % (36.0-46.0); HGB 11.3 g/dL (12.0-15.5); Mean Corp. HGB Concentration 33.3 g/dL (32.0-36.0); Mean Corpuscular Hemoglobin 33.1 pg (27.0-33.0); Mean Corpuscular Volume 99.4 fL (80-95); Mean Platelet Volume 12.8 fL (8.0-11.0); RBC 3.41 m/cumm (4.00-5.20); RBC Distribution Width 17.6 % (11.7-14.6); White Blood Cell Count 6.48 k/cumm (4.4-10.8)
[2019-09-19 10:40] LABS: ALT 21 U/L (14-59); AST 41 U/L (15-37); Albumin 2.4 g/dL (3.4-5.0); Alkaline Phosphatase 145 U/L (46-116); Anion Gap 6.8 mmol/L (3-11); BUN 8 mg/dL (7-18); Bilirubin, Total 0.6 mg/dL (0.2-1.0); CO2 28.2 mmol/L (21.0-32.0); CREATININE 0.71 mg/dL (0.55-1.02); Calcium 8.6 mg/dL (8.5-10.1); Chloride 104 mmol/L (98-107); Glucose 90 mg/dL (70-100); Potassium 3.5 mmol/L (3.5-5.1); Sodium 139 mmol/L (136-145); Total Protein 6.4 g/dL (6.4-8.2)
[2019-09-19 10:50] LABS: Absolute Basophil Count 0.06 k/cumm (0.0-0.2); Absolute Eosinophil Count 0.13 k/cumm (0.0-0.7); Absolute Lymphocyte Count 1.94 k/cumm (1.2-3.4); Absolute Monocyte Count 0.45 k/cumm (0.11-0.7); Absolute Neutrophil Count 3.89 k/cumm (1.2-6.7); Atypical Lymphocytes % 1
[2019-09-19 10:51] LABS: Diff Comment Manual Differential; RBC Morphology Normal
[2019-09-19 10:55] LABS: Platelet Count 71 x1000/uL (130-400)
[2019-09-22 11:21] LABS: CEA 54.8 ng/ml
[2019-09-22 17:06] LABS: CA 19-9 20 U/mL (<35)
[2019-09-25 07:18] LABS: Abs Immature Grans 0.01 k/cumm (0.0-0.09); Absolute Basophil Count 0.03 k/cumm (0.0-0.2); Absolute Lymphocyte Count 2.46 k/cumm (1.2-3.4); Absolute Monocyte Count 0.96 k/cumm (0.11-0.7); Absolute Neutrophil Count 4.14 k/cumm (1.2-6.7); Basophils % 0.4; Eosinophils % 1.3; HCT 34.7 % (36.0-46.0); HGB 11.5 g/dL (12.0-15.5); Immature Grans % 0.1; Lymphocytes % 31.9; Mean Corp. HGB Concentration 33.1 g/dL (32.0-36.0); Mean Corpuscular Hemoglobin 32.8 pg (27.0-33.0); Mean Corpuscular Volume 98.9 fL (80-95); Mean Platelet Volume 13.3 fL (8.0-11.0); Monocytes % 12.5; Neutrophils % 53.8; RBC 3.51 m/cumm (4.00-5.20); RBC Distribution Width 17.5 % (11.7-14.6)
[2019-09-25 07:28] LABS: ALT 18 U/L (14-59); AST 34 U/L (15-37); Albumin 2.4 g/dL (3.4-5.0); Alkaline Phosphatase 148 U/L (46-116); Anion Gap 7.8 mmol/L (3-11); BUN 11 mg/dL (7-18); Bilirubin, Total 0.5 mg/dL (0.2-1.0); CO2 28.2 mmol/L (21.0-32.0); CREATININE 0.75 mg/dL (0.55-1.02); Calcium 8.4 mg/dL (8.5-10.1); Chloride 101 mmol/L (98-107); Glucose 105 mg/dL (70-100); Potassium 3.8 mmol/L (3.5-5.1); Sodium 137 mmol/L (136-145); Total Protein 6.6 g/dL (6.4-8.2)
[2019-09-25 07:46] LABS: Platelet Count 94 x1000/uL (130-400)
[2019-09-25] MEDS: Normal Saline Flush 10 ML SYR IVP (07:49)
[2019-09-25 09:42] LABS: Vitamin B12 1407 pg/mL (193-986)
[2019-09-25 10:16] LABS: Folate 7.8 ng/mL (8.6-20.0)
[2019-09-26 10:03] LABS: CEA 65.3 ng/ml
[2019-09-26 11:13] LABS: CA 19-9 31 U/mL (<35)
== END 2019-10-04 23:59 | disposition home or self-care (01) ==
LOC: INF 03:13
PROVIDERS: PCP Family Medicine; Visit Provider Internal Medicine Hematology & Oncology
DX: C25.9 Malignant neoplasm of pancreas, unspecified (principal); C78.7 Secondary malignant neoplasm of liver and intrahepatic bile duct; Z45.2 Encounter for adjustment and management of vascular access device
CPT/HCPCS: 36415; 36591; 80053; 82378; 82607; 82746; 85025; 86301